=== PATIENT | female | born 1960 | race Two or more races ===

== ENCOUNTER 2020-10-10 08:27 | Day surgery (SDC) | payer OTHER, SELFPAY ==
[2020-09-30 15:33] VITALS: BMI 35.3
--- NOTE | 2020-10-10 07:03 | MHC.SHP ---
Pre-Procedural Eval Section A Date of Service: 10/10/20 Section B Chief Complaint: Right Eye Cataract Allergies: Allergies Allergy/AdvReac Type Severity Reaction Status Date / Time codeine Allergy tachycardia Verified 09/30/20 15:19 cortisone Allergy tachycardia Verified 09/30/20 15:19 hydromorphone Allergy swelling, Verified 09/30/20 15:19 Short of Breath morphine Allergy Hallucinati Verified 09/30/20 15:19 ons Penicillins Allergy Swelling Verified 09/30/20 15:19 Sulfa (Sulfonamide Allergy Swelling Verified 09/30/20 15:19 Antibiotics) Plan I have reviewed the history and physical and performed a pertinent physical examination on my patient. No changes have occurred unless specified.
[2020-10-10 11:01] VITALS: BP 146/57; PULSE 55; RESP 18; TEMP 36.3; O2SAT 98
[2020-10-10 11:02] LABS: Glucose, Whole Blood 350 mg/dL (60-115)
[2020-10-10] MEDS: Lactated Ringers 500 ML 50 ML IVCONT (11:20)
[2020-10-10] MEDS: Tetracaine HCl/PF 0.5% Oph Sol 4 ML DROPS 1 DROP EYE-RIGHT (11:21)
[2020-10-10] MEDS: Tropicamide 1 % Ophth Sol 3 ML BTL 1 DROP EYE-RIGHT ×3 (11:23→11:31)
[2020-10-10] MEDS: Phenylephrine HCL 2.5% Oph SoL 2 ML BOTTLE 1 DROP EYE-RIGHT ×3 (11:25→11:33)
[2020-10-10] MEDS: Insulin Lispro 100 UNIT/ML 3 ML VIAL 6 UNIT SUBCUT (11:38)
--- NOTE | 2020-10-10 11:54 | HO.ANESPROP2 ---
HPI - Anesthesia Eval Consult details Narrative: Right eye cataract [facility] Past Medical History Medical History CAD (coronary artery disease) Chronic low back pain Cirrhosis CKD (chronic kidney disease) stage 3, GFR 30-59 ml/min Elevated cholesterol HTN (hypertension) Mediastinal adenopathy Obesity Peripheral neuropathy Sarcoidosis of lung STEMI (ST elevation myocardial infarction) Type II diabetes mellitus Surgical History Surgical History History of heart artery stent History of tubal ligation Hx laparoscopic cholecystectomy Hx of colonoscopy Hx of endoscopy Social History Social History Are you a primary care clinician to a significant other at home: No Do you presently have visiting nurse or other home services: No Patient Tobacco Use Status: Never used Tobacco Use of substances other than those prescribed or required for medical reasons: No Have you been hit, kicked, punched, or otherwise hurt by someone within the past year? If so, by whom?: No Are you DNR?: No Advance Directives: No Advance Directives Information Provided: No Advance Directives on File: No Recently lost weight without trying: No Eating poorly because of decreased appetite: No Nutrition Risks: No Nutritional Risk Meds Allergies Allergy/AdvReac Type Severity Reaction Status Date / Time codeine Allergy tachycardia Verified 10/10/20 10:51 cortisone Allergy tachycardia Verified 10/10/20 10:51 hydromorphone Allergy swelling, Verified 10/10/20 10:51 Short of Breath morphine Allergy Hallucinati Verified 10/10/20 10:51 ons Penicillins Allergy Swelling Verified 10/10/20 10:51 Sulfa (Sulfonamide Allergy Swelling Verified 10/10/20 10:51 Antibiotics) Active Medications: Current Medications Generic Name Dose Route Start Last Admin Trade Name Freq PRN Reason Stop Dose Admin Lactated Ringer's 1,000 mls @ 50 mls/hr 10/07/20 12:15 Lr IVCONT .Q20H JOHANNA Lactated Ringer's 500 mls @ 50 mls/hr 10/10/20 07:45 10/10/20 11:20 Lr IVCONT 50 mls/hr .Q10H JOHANNA Administration Povidone Iodine 1 appl 10/10/20 07:03 Povidone Iodine 5 % Ophth Soln 30 Ml Bottle EYE-RIGHT PREOP PRN Pre-Op Surgical Implant Prophy Home Medications Medication Instructions Recorded Confirmed Last Taken Type acetaminophen 500 mg tablet 2 tab PO Q6H PRN 09/30/20 09/30/20 Unknown History amlodipine 5 mg tablet 1 tab PO DAILY 09/30/20 09/30/20 Unknown History ascorbic acid (vitamin C) 500 mg 500 mg PO DAILY 09/30/20 09/30/20 Unknown History tablet (Vitamin C) aspirin 81 mg tablet,delayed 1 tab PO DAILY 09/30/20 09/30/20 10/09/20 09:00 History release atorvastatin 80 mg tablet 1 tab PO BEDTIME 09/30/20 09/30/20 Unknown History carvedilol 25 mg tablet 1 tab PO 09/30/20 Unknown History cholecalciferol (vitamin D3) 25 25 mcg PO DAILY 09/30/20 09/30/20 Unknown History mcg (1,000 unit) capsule (Vitamin D3) diclofenac sodium 1 % topical gel g TOPICAL QID 09/30/20 Unknown History furosemide 20 mg tablet 1 tab PO DAILY 09/30/20 09/30/20 Unknown History insulin glargine 100 unit/mL (3 55 unit SUBCUT BEDTIME 09/30/20 09/30/20 Unknown History mL) subcutaneous pen (Lantus Solostar U-100 Insulin) insulin lispro 100 unit/mL 0 - 45 unit TOPICAL TID 09/30/20 09/30/20 Unknown History subcutaneous pen (Humalog KwikPen (U-100) Insulin) isosorbide mononitrate 30 mg 1 tab PO DAILY 09/30/20 09/30/20 Unknown History tablet,extended release 24 hr lisinopril 5 mg tablet 1 tab PO DAILY 09/30/20 09/30/20 Unknown History omega-3 fatty acids 1,000 mg PO DAILY 09/30/20 09/30/20 Unknown History timolol maleate 0.5 % eye drops 1 drp OPHTHALMIC-RIGHT QAM 09/30/20 09/30/20 Unknown History Exam Exam Date and Time: October 10, 2020 1154 Height,Weight and Vital Signs: Height 5 ft 2 in Weight 87.543 kg Last Vital Signs Temp 97.4 F 10/10/20 11:01 Pulse 55 10/10/20 11:01 Resp 18 10/10/20 11:01 BP 146/57 H 10/10/20 11:01 Pulse Ox 98 10/10/20 11:01 Pertinent Lab Results Pertinent Lab Results: Laboratory Tests 10/10/20 10:54 POC Glucose 350 H* Airway Mallampati Class: III TM Dist: >3cm Neck ROM: Full Loose/Missing/Broken Teeth: No Heart: [id number] Lungs: cta b/l
--- NOTE | 2020-10-10 12:02 | HO.PNOPHT ---
Ophthalmology Procedure Procedure Date of Service: 10/10/20 Ophthalmology Viscoelastic: Healon Duet Dual Pack Pro Ophthalmology Lenses: TECNIS [id number] (24.5) Procedure Notes: PREOPERATIVE DIAGNOSIS: Decreased visual acuity right eye secondary to cataract POSTOPERATIVE DIAGNOSIS: Same PROCEDURE: Right cataract extraction with intraocular lens insertion SURGEON: Teo Linder M.D. ANESTHESIA: Topical/MAC ESTIMATED BLOOD LOSS: None COMPLICATIONS: None After obtaining informed consent, the patient was brought to the operating room suite and placed in the supine position. After adequate sedation per anesthesia, topical drops of Tetracaine were given to the right eye. The eye was then prepped and draped in the usual sterile fashion. The operating room microscope was then positioned over the operative eye and a lid speculum placed. A paracentesis was created. Viscoelastic was then instilled into the anterior chamber. A three plane incision was then created temporally, utilizing a 2.85 mm keratome. Capsulotomy forceps were then utilized to create a circular tear capsulotomy. Hydrodissection and hydrodelineation were carried out until adequate mobilization of the nucleus occurred. Phacoemulsification was then utilized to remove the dense central nucleus followed by removal of the cortical material utilizing the automated aspiration irrigation unit. Viscoelastic was instilled into the posterior capsular bag followed by placement of a posterior chamber intraocular lens without difficulty. The residual Viscoelastic was then removed utilizing the automated IA machine. The wound was checked and found to be watertight. The patient tolerated the procedure well and the lid speculum was removed. Intracameral injection of Vigamox 0.1 mL followed by a subtenon injection of Kenalog-40 0.2 mL were administered. The patient will be seen in the a.m.
[2020-10-10 12:44] VITALS: BP 163/62; PULSE 56; RESP 16; TEMP 36.3; O2SAT 96
[2020-10-10 12:54] LABS: Glucose, Whole Blood 318 mg/dL (60-115)
--- NOTE | 2020-10-10 12:59 | PC.NURSE ---
Addendum entered by Daisy Skaggs RN 10/10/20 13:19: Written materials on diabetic diet provided for patient in [place]. Information reinforced with pt's family prior discharge home. Original Note: Dr. Riddle notified with post op POC BS 318, fasting. Preop POC 350. Pt seen by anesthesia prior discharge home, no further orders at this time. Pt instructed to follow up with her PCP re: elevated fasting blood sugars, and encouraged her to adhere to ADA diet, avoid junk foods, sugars and high carbs foods. Pt verbalized understanding, reports she monitors her blood sugars regularly at home as she is on Insulin and will f/u with her PCP.
== END 2020-10-10 13:20 | disposition home or self-care (01) ==
PROVIDERS: PCP Family Medicine; Visit Provider Ophthalmology
PROC: (CPT 66985; principal; 2020-10-10 11:20)
DX: H25.11 Age-related nuclear cataract, right eye (principal); Z83.511 Family history of glaucoma; H54.7 Unspecified visual loss; I10 Essential (primary) hypertension; D86.9 Sarcoidosis, unspecified; I12.9 Hypertensive chronic kidney disease with stage 1 through stage 4 chronic kidney disease, or unspecified chronic kidney disease; E11.22 Type 2 diabetes mellitus with diabetic chronic kidney disease; E11.3553 Type 2 diabetes mellitus with stable proliferative diabetic retinopathy, bilateral; N18.30 Chronic kidney disease, stage 3 unspecified; Z88.0 Allergy status to penicillin; Z88.2 Allergy status to sulfonamides; Z88.8 Allergy status to other drugs, medicaments and biological substances; Z79.4 Long term (current) use of insulin; Z79.899 Other long term (current) drug therapy
CPT/HCPCS: 66984; 82947; J2250; J3300; V2632

== ENCOUNTER 2020-10-24 08:38 | Day surgery (SDC) | payer OTHER, SELFPAY ==
[2020-09-30 15:38] VITALS: BMI 35.3
--- NOTE | 2020-10-17 14:42 | MHC.SHP ---
Pre-Procedural Eval Section A Date of Service: 10/17/20 The patient is an INPATIENT: No The History & Physical has been completed within 30 days and I have reviewed it.: Yes Section B Chief Complaint: Left Eye Cataract Allergies: Allergies Allergy/AdvReac Type Severity Reaction Status Date / Time codeine Allergy tachycardia Verified 10/10/20 10:51 cortisone Allergy tachycardia Verified 10/10/20 10:51 hydromorphone Allergy swelling, Verified 10/10/20 10:51 Short of Breath morphine Allergy Hallucinati Verified 10/10/20 10:51 ons Penicillins Allergy Swelling Verified 10/10/20 10:51 Sulfa (Sulfonamide Allergy Swelling Verified 10/10/20 10:51 Antibiotics) Plan Diagnosis/Plan: Unchanged I have reviewed the history and physical and performed a pertinent physical examination on my patient. No changes have occurred unless specified.
--- NOTE | 2020-10-20 14:30 | HO.ANESPROP2 ---
Documented by User: Cynthia Cabrera NP 10/20/20 14:32 HPI - Anesthesia Eval Consult details Narrative: 60yo F for Left Cataract Extraction IOL Insertion PCP cleared Right eye 10/10: [facility] 2 PMF[facility] Past Medical History Medical History CAD (coronary artery disease) Chronic low back pain Cirrhosis CKD (chronic kidney disease) stage 3, GFR 30-59 ml/min Elevated cholesterol HTN (hypertension) Mediastinal adenopathy Obesity Peripheral neuropathy Sarcoidosis of lung STEMI (ST elevation myocardial infarction) Type II diabetes mellitus Surgical History Surgical History History of heart artery stent History of tubal ligation Hx laparoscopic cholecystectomy Hx of colonoscopy Hx of endoscopy Social History Social History Are you a primary healthcare applications analyst to a significant other at home: No Do you presently have visiting nurse or other home services: No Patient Tobacco Use Status: Never used Tobacco Use of substances other than those prescribed or required for medical reasons: No Have you been hit, kicked, punched, or otherwise hurt by someone within the past year? If so, by whom?: No Are you DNR?: No Advance Directives: No Advance Directives Information Provided: No Advance Directives on File: No Recently lost weight without trying: No Eating poorly because of decreased appetite: No Nutrition Risks: No Nutritional Risk Patient : No Meds Allergies Allergy/AdvReac Type Severity Reaction Status Date / Time codeine Allergy tachycardia Verified 10/10/20 10:51 cortisone Allergy tachycardia Verified 10/10/20 10:51 hydromorphone Allergy swelling, Verified 10/10/20 10:51 Short of Breath morphine Allergy Hallucinati Verified 10/10/20 10:51 ons Penicillins Allergy Swelling Verified 10/10/20 10:51 Sulfa (Sulfonamide Allergy Swelling Verified 10/10/20 10:51 Antibiotics) Home Medications Medication Instructions Recorded Confirmed Last Taken Type acetaminophen 500 mg tablet 2 tab PO Q6H PRN 09/30/20 09/30/20 Unknown History amlodipine 5 mg tablet 1 tab PO DAILY 09/30/20 09/30/20 10/24/20 History ascorbic acid (vitamin C) 500 mg 500 mg PO DAILY 09/30/20 09/30/20 Unknown History tablet (Vitamin C) aspirin 81 mg tablet,delayed 1 tab PO DAILY 09/30/20 09/30/20 10/09/20 09:00 History release atorvastatin 80 mg tablet 1 tab PO BEDTIME 09/30/20 09/30/20 Unknown History carvedilol 25 mg tablet 1 tab PO 09/30/20 10/24/20 History cholecalciferol (vitamin D3) 25 25 mcg PO DAILY 09/30/20 09/30/20 Unknown History mcg (1,000 unit) capsule (Vitamin D3) diclofenac sodium 1 % topical gel g TOPICAL QID 09/30/20 Unknown History furosemide 20 mg tablet 1 tab PO DAILY 09/30/20 09/30/20 Unknown History insulin glargine 100 unit/mL (3 55 unit SUBCUT BEDTIME 09/30/20 09/30/20 Unknown History mL) subcutaneous pen (Lantus Solostar U-100 Insulin) insulin lispro 100 unit/mL 0 - 45 unit TOPICAL TID 09/30/20 09/30/20 Unknown History subcutaneous pen (Humalog KwikPen (U-100) Insulin) isosorbide mononitrate 30 mg 1 tab PO DAILY 09/30/20 09/30/20 10/24/20 History tablet,extended release 24 hr lisinopril 5 mg tablet 1 tab PO DAILY 09/30/20 09/30/20 Unknown History omega-3 fatty acids 1,000 mg PO DAILY 09/30/20 09/30/20 Unknown History timolol maleate 0.5 % eye drops 1 drp OPHTHALMIC-RIGHT QAM 09/30/20 09/30/20 Unknown History Exam Exam Date and Time: October 20, 2020 1430 Height,Weight and Vital Signs: Height 5 ft 2 in Weight 87.543 kg Assessment and Plan Assessment Anesthesia Assessment: Chart Reviewed Documented by User: Meagan Russell MD 10/24/20 10:09 [facility] Past Medical History Medical History CAD (coronary artery disease) Chronic low back pain Cirrhosis CKD (chronic kidney disease) stage 3, GFR 30-59 ml/min Elevated cholesterol HTN (hypertension) Mediastinal adenopathy Obesity Peripheral neuropathy Sarcoidosis of lung STEMI (ST elevation myocardial infarction) Type II diabetes mellitus Surgical History Surgical History History of heart artery stent History of tubal ligation Hx laparoscopic cholecystectomy Hx of colonoscopy Hx of endoscopy History of Problems with Anesthesia: No Social History Social History Are you a primary healthcare applications analyst to a significant other at home: No Do you presently have visiting nurse or other home services: No Patient Tobacco Use Status: Never used Tobacco Use of substances other than those prescribed or required for medical reasons: No Have you been hit, kicked, punched, or otherwise hurt by someone within the past year? If so, by whom?: No Are you DNR?: No Advance Directives: No Advance Directives Information Provided: No Advance Directives on File: No Recently lost weight without trying: No Eating poorly because of decreased appetite: No Nutrition Risks: No Nutritional Risk Patient : No Meds Allergies Allergy/AdvReac Type Severity Reaction Status Date / Time codeine Allergy tachycardia Verified 10/10/20 10:51 cortisone Allergy tachycardia Verified 10/10/20 10:51 hydromorphone Allergy swelling, Verified 10/10/20 10:51 Short of Breath morphine Allergy Hallucinati Verified 10/10/20 10:51 ons Penicillins Allergy Swelling Verified 10/10/20 10:51 Sulfa (Sulfonamide Allergy Swelling Verified 10/10/20 10:51 Antibiotics) Home Medications Medication Instructions Recorded Confirmed Last Taken Type acetaminophen 500 mg tablet 2 tab PO Q6H PRN 09/30/20 09/30/20 Unknown History amlodipine 5 mg tablet 1 tab PO DAILY 09/30/20 09/30/20 10/24/20 History ascorbic acid (vitamin C) 500 mg 500 mg PO DAILY 09/30/20 09/30/20 Unknown History tablet (Vitamin C) aspirin 81 mg tablet,delayed 1 tab PO DAILY 09/30/20 09/30/20 10/09/20 09:00 History release atorvastatin 80 mg tablet 1 tab PO BEDTIME 09/30/20 09/30/20 Unknown History carvedilol 25 mg tablet 1 tab PO 09/30/20 10/24/20 History cholecalciferol (vitamin D3) 25 25 mcg PO DAILY 09/30/20 09/30/20 Unknown History mcg (1,000 unit) capsule (Vitamin D3) diclofenac sodium 1 % topical gel g TOPICAL QID 09/30/20 Unknown History furosemide 20 mg tablet 1 tab PO DAILY 09/30/20 09/30/20 Unknown History insulin glargine 100 unit/mL (3 55 unit SUBCUT BEDTIME 09/30/20 09/30/20 Unknown History mL) subcutaneous pen (Lantus Solostar U-100 Insulin) insulin lispro 100 unit/mL 0 - 45 unit TOPICAL TID 09/30/20 09/30/20 Unknown History subcutaneous pen (Humalog KwikPen (U-100) Insulin) isosorbide mononitrate 30 mg 1 tab PO DAILY 09/30/20 09/30/20 10/24/20 History tablet,extended release 24 hr lisinopril 5 mg tablet 1 tab PO DAILY 09/30/20 09/30/20 Unknown History omega-3 fatty acids 1,000 mg PO DAILY 09/30/20 09/30/20 Unknown History timolol maleate 0.5 % eye drops 1 drp OPHTHALMIC-RIGHT QAM 09/30/20 09/30/20 Unknown History Exam Airway Mallampati Class: II Heart: RRR Lungs: CTA Assessment and Plan Assessment Anesthesia Assessment: Anesthesia Plan Discussed Final Anesthetic Review History of Problems with Anesthesia: No NPO: Yes ASA Class: III Final Preanesthetic Review: Meds/Allgs Chart Reviewed, Consent Obtained/Reviewed and Anes Risks/Benef Reviewed Patient Risk: Intermediate Procedure Risk: Low Anesthetic Plan Anesthetic Plan: MAC: Disposition: Standard PACU
[2020-10-24 09:34] VITALS: BP 154/49; PULSE 64; RESP 16; TEMP 35.6; O2SAT 97
[2020-10-24] MEDS: Tetracaine HCl/PF 0.5% Oph Sol 4 ML DROPS 1 DROP EYE-LEFT (09:45)
[2020-10-24] MEDS: Lactated Ringers 500 ML 50 ML IV (09:46)
[2020-10-24] MEDS: Tropicamide 1 % Ophth Sol 3 ML BTL 1 DROP EYE-LEFT ×3 (09:47→09:59)
[2020-10-24] MEDS: Phenylephrine HCL 2.5% Oph SoL 2 ML BOTTLE 1 DROP EYE-LEFT ×3 (09:50→10:04)
[2020-10-24 09:51] LABS: Glucose, Whole Blood 262 mg/dL (60-115)
--- NOTE | 2020-10-24 10:37 | P.PCNO_ITS ---
Ophthalmology Procedure Procedure Date of Service: 10/24/20 Ophthalmology Viscoelastic: Healon Duet Dual Pack Pro Ophthalmology Lenses: TECNIS [id number] Procedure Notes: PREOPERATIVE DIAGNOSIS: Decreased visual acuity left eye secbrody my to cataract POSTOPERATIVE DIAGNOSIS: Same PROCEDURE: Left cataract extraction with intraocular lens insertion SURGEON: Teo Linder M.D. ANESTHESIA: Topical/MAC ESTIMATED BLOOD LOSS: None COMPLICATIONS: None After obtaining informed consent, the patient was brought to the operation room suite and placed in the supine position. After adequate sedation per anesthesia, topical drops of Tetracaine were given to the left eye. The eye was then prepped and draped in the usual sterile fashion. The operating room microscope was then positioned over the operative eye and a lid speculum placed. A paracentesis was created. Viscoelastic was then instilled into the anterior chamber. A three plane incision was then created temporally, utilizing a 2.85 mm keratome. Capsulotomy forceps were then utilized to create a circular tear capsulotomy. Hydrodissection and hydrodelineation were carried out until adequate mobilization of the nucleus occurred. Phacoemulsification was then utilized to remove the dense central nucleus followed by removal of the cortical material utilizing the automated aspiration irrigation unit. Viscoat elastic was instilled into the posterior capsular bag followed by placement of a posterior chamber intraocular lens without difficulty. The residual Viscoat elastic was then removed utilizing the automated IA machine. The wound was check and found to be watertight. The patient tolerated the procedure well and the lid speculum was removed. Intracameral injection of Vigamox 0.1 mL followed by a subtenon injection of Kenalog-40 0.2 mL were administered. The patient will be seen in the a.m.
[2020-10-24 11:02] VITALS: BP 154/62; PULSE 56; RESP 16; TEMP 36.3; O2SAT 99
[2020-10-24] MEDS: Ondansetron ODT 4 MG TAB.RAPDIS TRANSLINGU (11:20)
--- NOTE | 2020-10-24 11:22 | PC.NURSE ---
Pt became nauseous upon discharge, pt seen by Dr. Riddle. PO Zofran given with good relief.
== END 2020-10-24 11:26 | disposition home or self-care (01) ==
PROVIDERS: PCP Family Medicine; Visit Provider Ophthalmology
PROC: (CPT 66985; principal; 2020-10-24 10:30)
DX: H25.12 Age-related nuclear cataract, left eye (principal); H54.7 Unspecified visual loss; Z83.511 Family history of glaucoma; I10 Essential (primary) hypertension; E11.3553 Type 2 diabetes mellitus with stable proliferative diabetic retinopathy, bilateral; Z79.4 Long term (current) use of insulin; Z79.82 Long term (current) use of aspirin; Z79.899 Other long term (current) drug therapy; Z88.0 Allergy status to penicillin; Z88.2 Allergy status to sulfonamides; Z88.8 Allergy status to other drugs, medicaments and biological substances
CPT/HCPCS: 66984; 82947; J2250; J3010; J3300; V2632

== ENCOUNTER 2023-09-17 15:49 | Outpatient (AMB) | payer MEDICARE, MEDICAID, SELFPAY ==
--- NOTE | 2023-09-17 14:35 | HO.NEPHOV ---
Intake Visit Reasons: Prev Patient/ LVM Allergies codeine Allergy (Verified 10/10/20 10:51) tachycardia cortisone Allergy (Verified 10/10/20 10:51) tachycardia hydromorphone Allergy (Verified 10/10/20 10:51) swelling, Short of Breath morphine Allergy (Verified 10/10/20 10:51) Hallucinations Penicillins Allergy (Verified 10/10/20 10:51) Swelling Sulfa (Sulfonamide Antibiotics) Allergy (Verified 10/10/20 10:51) Swelling PFSH Medical History CAD (coronary artery disease) Chronic low back pain Cirrhosis CKD (chronic kidney disease) stage 3, GFR 30-59 ml/min Elevated cholesterol HTN (hypertension) Mediastinal adenopathy Obesity Peripheral neuropathy Sarcoidosis of lung STEMI (ST elevation myocardial infarction) Type II diabetes mellitus Surgical History History of heart artery stent History of tubal ligation Hx laparoscopic cholecystectomy Hx of colonoscopy Hx of endoscopy Social History Are you a primary healthcare network consultant to a significant other at home: No Do you presently have visiting nurse or other home services: No Patient Tobacco Use Status: Never used Tobacco Results Reviewed Nephrology Results: No Data to Display Coding
[2023-09-17 16:24] VITALS: BP 132/52; PULSE 73; O2SAT 95; BMI 33.0
--- NOTE | 2023-09-17 16:24 | HO.NEPHOV ---
Vital Signs 09/17/23 16:24 Height 5 ft 2 in Weight 180 lb 8 oz BMI 33.0 BP 132/52 L Blood Pressure Location Lt brachial Position Sitting Pulse 73 Pulse Source Pulse Oximeter Pulse Oximetry (%) 95 Oxygen Delivery Method Room Air Intake Visit Reasons: Prev Patient/ LVM Home Care Manager Rn Required: Yes Home Care Manager Rn Services: Home Care Manager Rn Present Home Care Manager Rn Name: Francisca [id number] Accompanied by: Daughter Allergies codeine Allergy (Verified 10/10/20 10:51) tachycardia cortisone Allergy (Verified 10/10/20 10:51) tachycardia hydromorphone Allergy (Verified 10/10/20 10:51) swelling, Short of Breath latex Allergy (Verified 09/17/23 16:26) Unknown morphine Allergy (Verified 10/10/20 10:51) Hallucinations Penicillins Allergy (Verified 10/10/20 10:51) Swelling Sulfa (Sulfonamide Antibiotics) Allergy (Verified 10/10/20 10:51) Swelling HPI Comments Details: I had the pleasure of seeing Francisca in follow-up of her recent BHAVNA. She has history of chronic kidney disease, nephrolithiasis, proteinuria on a backdrop of sarcoidosis. She recently presented to hospital with shortness of breath and was admitted for acute hypoxic respiratory failure. She had pulmonary vascular congestion seen on chest x-ray in the ER with elevated pro BNP and was admitted for further management. She underwent CT scan of the chest which was unchanged from prior in terms of pulmonary sarcoid. Pulmonology did not recommend systemic steroids or methotrexate. Her hospital stay was complicated by development of BHAVNA which improved after discontinuation of intravenous Lasix. She was accompanied by her daughter during this office visit. She likely has pulmonary artery hypertension in the setting of pulmonary sarcoid and heart failure with a preserved ejection fraction. She may be having an element of cardiac sarcoid which is going to be worked up as an outpatient. She is currently on torsemide. Her baseline serum creatinine had been 1.8 which had gone up to 2.84 but was 2.2 at the time of recent hospital discharge. Her blood sugar is better controlled on current insulin dosages. Her home losartan has been on hold due to BHAVNA. She did not have any new complaints at the time of this office visit. [facility] Medical History (Updated 09/18/23 @ 11:37 by Yonathan Tesfaye MD) Obesity STEMI (ST elevation myocardial infarction) Peripheral neuropathy Mediastinal adenopathy Cirrhosis Chronic low back pain Type II diabetes mellitus Elevated cholesterol HTN (hypertension) CKD (chronic kidney disease) stage 3, GFR 30-59 ml/min CAD (coronary artery disease) Sarcoidosis of lung Surgical History History of tubal ligation Hx of endoscopy Hx laparoscopic cholecystectomy Hx of colonoscopy History of heart artery stent Social History Are you a primary inspector health care facilities to a significant other at home: No Do you presently have visiting nurse or other home services: No Patient Tobacco Use Status: Never used Tobacco Review of Systems Const All systems reviewed & are unremarkable except as noted in HPI and below Physical Exam Vital Signs: Last Vital Signs Pulse 73 09/17/23 16:24 BP 132/52 L 09/17/23 16:24 Pulse Ox 95 09/17/23 16:24 Oxygen Delivery Method Room Air 09/17/23 16:24 BMI result Body Mass Index 33.0 Const General: comfortable and no acute distress Orientation/consciousness: patient oriented x3 HEENT Head: Yes normocephalic Mouth: Normal oral and palatal mucosa present Eyes EOM: EOMs intact bilaterally Neck Neck: Yes supple Resp Auscultation: diminished lung sounds Cardio Jugular venous distension: no JVD Rate: regular rate GI Palpation (GI): Soft to palpation Auscultation: normal bowel sounds General: Yes no CVA tenderness Back/Spine/Pelvis Back: no CVA tenderness Skin General skin exam: no rashes or lesions noted Neuro General: patient oriented x3 and moves all extremities Extrem General: Yes no pedal edema Results Reviewed Nephrology Results: No Data to Display Assessment & Plan Assessment & Plan (1) HTN (hypertension): Code(s): I10 - Essential (primary) hypertension Category: Medical Qualifiers: Hypertension type: primary hypertension Qualified Code(s): I10 - Essential (primary) hypertension (2) CKD stage 3a, GFR 45-59 ml/min: Code(s): N18.31 - Chronic kidney disease, stage 3a Category: Medical (3) BHAVNA (acute kidney injury): Code(s): N17.9 - Acute kidney failure, unspecified Category: Medical Plan She recently had BHAVNA on CKD due to tubular injury. She has history of renal calculi but has not had a problem with it recently. Her blood pressure is currently at goal. She is not on any immunosuppression for sarcoid. She has been on losartan which has been put on hold due to recent BHAVNA. Her diuretic torsemide has been restarted. Her urine output is good. Has no recent suspect any new acute glomerular or interstitial pathology causing BHAVNA. Her volume status is optimal on current medication regimen. She should be on a low-sodium diet. She will benefit by losing some weight. She should maintain fluid restriction. I did not make any medication changes today. Time spent retrieving all the data from [facility], patient encounter and documentation 61 minutes. Answered all her and her daughter's questions. Follow-up appointment given. Orders: Orders Creatinine 3 Weeks I10 - Essential (primary) hypertension, N17.9 - Acute kidney failure, unspecified, N18.31 - Chronic kidney disease, stage 3a Electrolytes 3 Weeks I10 - Essential (primary) hypertension, N17.9 - Acute kidney failure, unspecified, N18.31 - Chronic kidney disease, stage 3a Calcium 3 Weeks I10 - Essential (primary) hypertension, N17.9 - Acute kidney failure, unspecified, N18.31 - Chronic kidney disease, stage 3a Vitamin D 25-OH Total 3 Weeks I10 - Essential (primary) hypertension, N17.9 - Acute kidney failure, unspecified, N18.31 - Chronic kidney disease, stage 3a Phosphorus 3 Weeks I10 - Essential (primary) hypertension, N17.9 - Acute kidney failure, unspecified, N18.31 - Chronic kidney disease, stage 3a Blood Urea Nitrogen 3 Weeks I10 - Essential (primary) hypertension, N17.9 - Acute kidney failure, unspecified, N18.31 - Chronic kidney disease, stage 3a Parathyroid Hormone Intact 3 Weeks I10 - Essential (primary) hypertension, N17.9 - Acute kidney failure, unspecified, N18.31 - Chronic kidney disease, stage 3a Complete Blood Count Auto Diff 3 Weeks I10 - Essential (primary) hypertension, N17.9 - Acute kidney failure, unspecified, N18.31 - Chronic kidney disease, stage 3a Coding Level of Care Code Est Pt Level 5 (35392) Diagnoses Primary hypertension I10 Hypertension type: primary hypertension CKD stage 3a, GFR 45-59 ml/min N18.31 BHAVNA (acute kidney injury) N17.9
== END 2023-09-17 16:40 | disposition home or self-care (01) ==
LOC: HO.HKAS 15:49
PROVIDERS: PCP Family Medicine; Visit Provider Internal Medicine Nephrology
DX: I10 Essential (primary) hypertension (principal); N18.31 Chronic kidney disease, stage 3a; N17.9 Acute kidney failure, unspecified
CPT/HCPCS: 99215; G2212

== ENCOUNTER → 2023-09-17 15:49 | Outpatient (BNVA) | payer MEDICARE, MEDICAID, SELFPAY | PROVIDERS: PCP Family Medicine; Visit Provider Internal Medicine Nephrology | DX: N17.9 Acute kidney failure, unspecified (principal); I12.9 Hypertensive chronic kidney disease with stage 1 through stage 4 chronic kidney disease, or unspecified chronic kidney disease; N18.31 Chronic kidney disease, stage 3a; Z87.442 Personal history of urinary calculi | CPT/HCPCS: 99212 ==

== ENCOUNTER 2023-11-05 10:59 | Outpatient (AMB) | payer MEDICARE, MEDICAID, SELFPAY ==
[2023-11-05 11:09] VITALS: BP 124/60; PULSE 66; O2SAT 98; BMI 33.5
--- NOTE | 2023-11-05 11:09 | HO.NEPHOV ---
Vital Signs 11/05/23 11:09 Height 5 ft 2 in Weight 183 lb BMI 33.5 BP 124/60 Blood Pressure Location Lt brachial Position Sitting Pulse 66 Pulse Source Pulse Oximeter Pulse Oximetry (%) 98 Oxygen Delivery Method Room Air Intake Visit Reasons: BHAVNA- Conf Computer Publisher Required: Yes Computer Publisher Services: Computer Publisher Present Computer Publisher Name: Elie [id number] Accompanied by: Self / Same As Patient Allergies codeine Allergy (Verified 11/05/23 11:11) tachycardia cortisone Allergy (Verified 11/05/23 11:11) tachycardia hydromorphone Allergy (Verified 11/05/23 11:11) swelling, Short of Breath latex Allergy (Verified 11/05/23 11:11) Unknown morphine Allergy (Verified 11/05/23 11:11) Hallucinations Penicillins Allergy (Verified 11/05/23 11:11) Swelling Sulfa (Sulfonamide Antibiotics) Allergy (Verified 11/05/23 11:11) Swelling HPI Comments Details: I had the pleasure of seeing Francisca in follow-up of her recent BHAVNA. She has history of chronic kidney disease, nephrolithiasis, proteinuria on a backdrop of sarcoidosis. She recently had shortness of breath and was admitted for acute hypoxic respiratory failure. She had pulmonary vascular congestion seen on chest x-ray in the ER with elevated pro BNP and was admitted for further management. She underwent CT scan of the chest which was unchanged from prior in terms of pulmonary sarcoid. Pulmonology did not recommend systemic steroids or methotrexate. She likely has pulmonary artery hypertension in the setting of pulmonary sarcoid and heart failure with a preserved ejection fraction. She may be having an element of cardiac sarcoid which is going to be worked up as an outpatient. She is currently on torsemide. Her baseline serum creatinine had been 1.8 which had gone up to 2.84 which is improving. Her blood sugar is better controlled on current insulin dosages. She recently had UTI which was treated with antibiotics. She did not have any new complaints at the time of this office visit. [facility] Medical History (Updated 09/18/23 @ 11:37 by Yonathan Tesfaye MD) Obesity STEMI (ST elevation myocardial infarction) Peripheral neuropathy Mediastinal adenopathy Cirrhosis Chronic low back pain Type II diabetes mellitus Elevated cholesterol HTN (hypertension) CKD (chronic kidney disease) stage 3, GFR 30-59 ml/min CAD (coronary artery disease) Sarcoidosis of lung Surgical History History of tubal ligation Hx of endoscopy Hx laparoscopic cholecystectomy Hx of colonoscopy History of heart artery stent Social History Are you a primary career and technology education teacher to a significant other at home: No Do you presently have visiting nurse or other home services: No Patient Tobacco Use Status: Never used Tobacco Review of Systems Const All systems reviewed & are unremarkable except as noted in HPI and below Physical Exam Vital Signs: Last Vital Signs Pulse 66 11/05/23 11:09 BP 124/60 11/05/23 11:09 Pulse Ox 98 11/05/23 11:09 Oxygen Delivery Method Room Air 11/05/23 11:09 BMI result Body Mass Index 33.5 Const General: comfortable and no acute distress Orientation/consciousness: patient oriented x3 HEENT Head: Yes normocephalic Mouth: Normal oral and palatal mucosa present Eyes EOM: EOMs intact bilaterally Neck Neck: Yes supple Resp Auscultation: clear to auscultation bilaterally Cardio Jugular venous distension: no JVD Rate: regular rate GI Palpation (GI): Soft to palpation Auscultation: normal bowel sounds General: Yes no CVA tenderness Back/Spine/Pelvis Back: no CVA tenderness Skin General skin exam: no rashes or lesions noted Neuro General: patient oriented x3 and moves all extremities Extrem General: Yes no pedal edema Results Reviewed Nephrology Results: No Data to Display Assessment & Plan Assessment & Plan (1) BHAVNA (acute kidney injury): Code(s): N17.9 - Acute kidney failure, unspecified Category: Medical (2) CKD stage 3a, GFR 45-59 ml/min: Code(s): N18.31 - Chronic kidney disease, stage 3a Category: Medical (3) HTN (hypertension): Code(s): I10 - Essential (primary) hypertension Category: Medical Qualifiers: Hypertension type: primary hypertension Qualified Code(s): I10 - Essential (primary) hypertension Plan She recently had BHAVNA on CKD due to tubular injury which is improving . She has history of renal calculi but has not had a problem with it recently. Her blood pressure is currently at goal. She is not on any immunosuppression for sarcoid. She has been on losartan which has been put on hold due to recent BHAVNA. She can continue current dose of torsemide. Her urine output is good. Has no recent suspect any new acute glomerular or interstitial pathology causing BHAVNA. Her volume status is optimal on current medication regimen. She should be on a low-sodium diet. She will benefit by losing some weight. She should maintain fluid restriction. I did not make any medication changes today. Answered all her questions. Follow-up appointment given. Orders: Orders Creatinine Today I10 - Essential (primary) hypertension, N17.9 - Acute kidney failure, unspecified, N18.31 - Chronic kidney disease, stage 3a Blood Urea Nitrogen Today I10 - Essential (primary) hypertension, N17.9 - Acute kidney failure, unspecified, N18.31 - Chronic kidney disease, stage 3a Electrolytes Today I10 - Essential (primary) hypertension, N17.9 - Acute kidney failure, unspecified, N18.31 - Chronic kidney disease, stage 3a Coding Level of Care Code Est Pt Level 4 (74849) Diagnoses BHAVNA (acute kidney injury) N17.9 CKD stage 3a, GFR 45-59 ml/min N18.31 Primary hypertension I10 Hypertension type: primary hypertension
== END 2023-11-05 11:31 | disposition home or self-care (01) ==
PROVIDERS: PCP Family Medicine; Visit Provider Internal Medicine Nephrology
DX: N17.9 Acute kidney failure, unspecified (principal); N18.31 Chronic kidney disease, stage 3a; I10 Essential (primary) hypertension
CPT/HCPCS: 99214

== ENCOUNTER → 2023-11-05 10:59 | Outpatient (BNVA) | payer MEDICARE, MEDICAID, SELFPAY | PROVIDERS: PCP Family Medicine; Visit Provider Internal Medicine Nephrology | DX: N17.9 Acute kidney failure, unspecified (principal); E11.22 Type 2 diabetes mellitus with diabetic chronic kidney disease; I12.9 Hypertensive chronic kidney disease with stage 1 through stage 4 chronic kidney disease, or unspecified chronic kidney disease; N18.31 Chronic kidney disease, stage 3a | CPT/HCPCS: 99212 ==

== ENCOUNTER 2024-01-07 10:59 | Outpatient (AMB) | payer MEDICARE, MEDICAID, SELFPAY ==
--- NOTE | 2024-01-07 11:38 | HO.NEPHOV_ITS ---
Vital Signs 01/07/24 11:39 Height 5 ft 2 in Weight 176 lb 8 oz BMI 32.3 BP 150/64 H Blood Pressure Location Lt brachial Position Sitting Pulse 66 Pulse Source Pulse Oximeter Pulse Oximetry (%) 95 Oxygen Delivery Method Room Air Intake Visit Reasons: 2 mon follow up-Conf Nutrition Counselor Required: Yes Nutrition Counselor Language: Deputy Sheriff Chief Services: Nutrition Counselor Present Nutrition Counselor Name: Abner [id number] Accompanied by: Self / Same As Patient Allergies codeine Allergy (Verified 01/07/24 11:38) tachycardia cortisone Allergy (Verified 01/07/24 11:38) tachycardia hydromorphone Allergy (Verified 01/07/24 11:38) swelling, Short of Breath latex Allergy (Verified 01/07/24 11:38) Unknown morphine Allergy (Verified 01/07/24 11:38) Hallucinations Penicillins Allergy (Verified 01/07/24 11:38) Swelling Sulfa (Sulfonamide Antibiotics) Allergy (Verified 01/07/24 11:38) Swelling HPI Comments Details: I had the pleasure of seeing Francisca in follow-up for chronic kidney disease, nephrolithiasis, proteinuria on a backdrop of sarcoidosis. She underwent CT scan of the chest which was unchanged from prior in terms of pulmonary sarcoid. Pulmonology did not recommend systemic steroids or methotrexate. She likely has pulmonary artery hypertension in the setting of pulmonary sarcoid and heart failure with a preserved ejection fraction. She is currently on torsemide. Her baseline serum creatinine had been 1.8 which had gone up to 2.84 which is improving. Her blood sugar is better controlled on current insulin dosages. She did not have any new complaints at the time of this office visit. [facility] Medical History (Updated 09/18/23 @ 11:37 by Yonathan Tesfaye MD) Obesity STEMI (ST elevation myocardial infarction) Peripheral neuropathy Mediastinal adenopathy Cirrhosis Chronic low back pain Type II diabetes mellitus Elevated cholesterol HTN (hypertension) CKD (chronic kidney disease) stage 3, GFR 30-59 ml/min CAD (coronary artery disease) Sarcoidosis of lung Surgical History History of tubal ligation Hx of endoscopy Hx laparoscopic cholecystectomy Hx of colonoscopy History of heart artery stent Social History Are you a primary patient care associate to a significant other at home: No Do you presently have visiting nurse or other home services: No Patient Tobacco Use Status: Never used Tobacco Physical Exam Vital Signs: Last Vital Signs Pulse 66 01/07/24 11:39 BP 150/64 H 01/07/24 11:39 Pulse Ox 95 01/07/24 11:39 Oxygen Delivery Method Room Air 01/07/24 11:39 BMI result Body Mass Index 32.3 Const General: comfortable and no acute distress Orientation/consciousness: patient oriented x3 HEENT Head: Yes normocephalic Mouth: Normal oral and palatal mucosa present Eyes EOM: EOMs intact bilaterally Neck Neck: Yes supple Resp Auscultation: clear to auscultation bilaterally Cardio Jugular venous distension: no JVD Rate: regular rate GI Palpation (GI): Soft to palpation Auscultation: normal bowel sounds General: Yes no CVA tenderness Back/Spine/Pelvis Back: no CVA tenderness Skin General skin exam: no rashes or lesions noted Neuro General: patient oriented x3 and moves all extremities Results Reviewed Nephrology Results: No Data to Display Assessment & Plan Assessment & Plan (1) CKD stage 3a, GFR 45-59 ml/min: Code(s): N18.31 - Chronic kidney disease, stage 3a Category: Medical (2) HTN (hypertension): Code(s): I10 - Essential (primary) hypertension Category: Medical Qualifiers: Hypertension type: primary hypertension Qualified Code(s): I10 - Essential (primary) hypertension Plan She recently had BHAVNA on CKD due to tubular injury which is improving; Her renal function is close to baseline . She has history of renal calculi but has not had a problem with it recently. Her blood pressure is currently at goal. She is not on any immunosuppression for sarcoid. She can continue current dose of torsemide. Her urine output is good. Her volume status is optimal on current medication regimen. She should be on a low-sodium diet. She is on Jardiance. She will benefit by losing some weight. She should maintain fluid restriction. I did not make any medication changes today. Answered all her questions. Follow-up appointment given. Orders: Orders Creatinine 3 Months I10 - Essential (primary) hypertension, N18.31 - Chronic kidney disease, stage 3a Blood Urea Nitrogen 3 Months I10 - Essential (primary) hypertension, N18.31 - Chronic kidney disease, stage 3a Calcium 3 Months I10 - Essential (primary) hypertension, N18.31 - Chronic kidney disease, stage 3a Electrolytes 3 Months I10 - Essential (primary) hypertension, N18.31 - Chronic kidney disease, stage 3a Coding Level of Care Code Est Pt Level 4 (35562) Diagnoses CKD stage 3a, GFR 45-59 ml/min N18.31 Primary hypertension I10 Hypertension type: primary hypertension
[2024-01-07 11:39] VITALS: BP 150/64; PULSE 66; O2SAT 95; BMI 32.3
== END 2024-01-07 11:51 | disposition home or self-care (01) ==
PROVIDERS: PCP Family Medicine; Visit Provider Internal Medicine Nephrology
DX: N18.31 Chronic kidney disease, stage 3a (principal); I10 Essential (primary) hypertension
CPT/HCPCS: 99214

== ENCOUNTER → 2024-01-07 10:59 | Outpatient (BNVA) | payer MEDICARE, MEDICAID, SELFPAY | PROVIDERS: PCP Family Medicine; Visit Provider Internal Medicine Nephrology | DX: E11.22 Type 2 diabetes mellitus with diabetic chronic kidney disease (principal); I12.9 Hypertensive chronic kidney disease with stage 1 through stage 4 chronic kidney disease, or unspecified chronic kidney disease; N18.31 Chronic kidney disease, stage 3a; Z79.4 Long term (current) use of insulin | CPT/HCPCS: 99212 ==

== ENCOUNTER 2024-04-07 10:35 | Outpatient (AMB) | payer MEDICARE, MEDICAID, SELFPAY ==
--- NOTE | 2024-04-07 11:09 | HO.NEPHOV_ITS ---
Vital Signs 04/07/24 11:10 Height 5 ft 2 in Weight 174 lb 6 oz BMI 31.9 BP 130/60 Blood Pressure Location Lt brachial Position Sitting Pulse 71 Pulse Source Pulse Oximeter Pulse Oximetry (%) 98 Oxygen Delivery Method Room Air Intake Visit Reasons: 3mon follow up/ LVM Lumber Tallier Required: Yes Lumber Tallier Language: Machine Spreader Services: Lumber Tallier Present Lumber Tallier Name: Tina [id number] Information Interpreted: clinical only Accompanied by: Self / Same As Patient Allergies codeine Allergy (Verified 04/07/24 11:10) tachycardia cortisone Allergy (Verified 04/07/24 11:10) tachycardia hydromorphone Allergy (Verified 04/07/24 11:10) swelling, Short of Breath latex Allergy (Verified 04/07/24 11:10) Unknown morphine Allergy (Verified 04/07/24 11:10) Hallucinations Penicillins Allergy (Verified 04/07/24 11:10) Swelling Sulfa (Sulfonamide Antibiotics) Allergy (Verified 04/07/24 11:10) Swelling HPI Comments Details: I had the pleasure of seeing Francisca in follow-up for chronic kidney disease, nephrolithiasis, proteinuria on a backdrop of sarcoidosis. She underwent CT scan of the chest which was unchanged from prior in terms of pulmonary sarcoid. Pulmonology did not recommend systemic steroids or methotrexate. She likely has pulmonary artery hypertension in the setting of pulmonary sarcoid and heart failure with a preserved ejection fraction. She is currently on torsemide. Her blood sugar is better controlled on current insulin dosages. She did not have any new complaints at the time of this office visit. [facility] Medical History (Updated 09/18/23 @ 11:37 by Yonathan Tesfaye MD) Obesity STEMI (ST elevation myocardial infarction) Peripheral neuropathy Mediastinal adenopathy Cirrhosis Chronic low back pain Type II diabetes mellitus Elevated cholesterol HTN (hypertension) CKD (chronic kidney disease) stage 3, GFR 30-59 ml/min CAD (coronary artery disease) Sarcoidosis of lung Surgical History History of tubal ligation Hx of endoscopy Hx laparoscopic cholecystectomy Hx of colonoscopy History of heart artery stent Social History Are you a primary home care and home health aides teacher to a significant other at home: No Do you presently have visiting nurse or other home services: No Patient Tobacco Use Status: Never used Tobacco Review of Systems Const All systems reviewed & are unremarkable except as noted in HPI and below Physical Exam Vital Signs: Last Vital Signs Pulse 71 04/07/24 11:10 BP 130/60 04/07/24 11:10 Pulse Ox 98 04/07/24 11:10 Oxygen Delivery Method Room Air 04/07/24 11:10 BMI result Body Mass Index 31.9 Const General: comfortable and no acute distress Orientation/consciousness: patient oriented x3 HEENT Head: Yes normocephalic Mouth: Normal oral and palatal mucosa present Eyes EOM: EOMs intact bilaterally Neck Neck: Yes supple Resp Auscultation: clear to auscultation bilaterally Cardio Jugular venous distension: no JVD Rate: regular rate GI Palpation (GI): Soft to palpation Auscultation: normal bowel sounds General: Yes no CVA tenderness Back/Spine/Pelvis Back: no CVA tenderness Skin General skin exam: no rashes or lesions noted Neuro General: patient oriented x3 and moves all extremities Extrem General: Yes no pedal edema Results Reviewed Nephrology Results: No Data to Display Assessment & Plan Assessment & Plan (1) CKD stage 3a, GFR 45-59 ml/min: Code(s): N18.31 - Chronic kidney disease, stage 3a Category: Medical (2) HTN (hypertension): Code(s): I10 - Essential (primary) hypertension Category: Medical Qualifiers: Hypertension type: primary hypertension Qualified Code(s): I10 - Essential (primary) hypertension Plan She has history of renal calculi but has not had a problem with it recently. Her blood pressure is currently at goal. She is not on any immunosuppression for sarcoid. She can continue current dose of torsemide. Her urine output is good. Her volume status is optimal on current medication regimen. She should be on a low-sodium diet. She is on Jardiance. She will benefit by losing some weight. She should maintain fluid restriction. I did not make any medication changes today. Answered all her questions. Follow-up appointment given. Orders: Orders Electrolytes Today I10 - Essential (primary) hypertension, N18.31 - Chronic kidney disease, stage 3a Blood Urea Nitrogen 3 Months I10 - Essential (primary) hypertension, N18.31 - Chronic kidney disease, stage 3a Creatinine Today I10 - Essential (primary) hypertension, N18.31 - Chronic kidney disease, stage 3a Blood Urea Nitrogen Today I10 - Essential (primary) hypertension, N18.31 - Chronic kidney disease, stage 3a Calcium Today I10 - Essential (primary) hypertension, N18.31 - Chronic kidney disease, stage 3a Creatinine 3 Months I10 - Essential (primary) hypertension, N18.31 - Chronic kidney disease, stage 3a Electrolytes 3 Months I10 - Essential (primary) hypertension, N18.31 - Chronic kidney disease, stage 3a Calcium 3 Months I10 - Essential (primary) hypertension, N18.31 - Chronic kidney disease, stage 3a Protein Creatinine Ratio, Ur Today I10 - Essential (primary) hypertension, N18.31 - Chronic kidney disease, stage 3a Coding Level of Care Code Est Pt Level 4 (75743) Diagnoses CKD stage 3a, GFR 45-59 ml/min N18.31 Primary hypertension I10 Hypertension type: primary hypertension
[2024-04-07 11:10] VITALS: BP 130/60; PULSE 71; O2SAT 98; BMI 31.9
--- OUTSIDE RECORDS SUMMARY | 2024-04-07 11:44 | XMS_ITS | Encounter Summary ---
Author Organization [facility], Address [address] [place] [address] Phone Care Team Providers Care Washroom Cleaner Name Role Phone Renato Nunn MD Primary Care Provider + [phone] Encounter Details Date Type Department Care Team (Late Contact Info) Description 12/23/2023 Documentation Only [facility] [address] [place] [address] Bairon Dumas [place] [address] [place] [phone] Social History Tobacco Use Types Packs/Day Years Used Date Smoking Tobacco: Never Smokeless Tobacco: Never Alcohol Use Standard Drinks/Week Comments No 0 (1 standard drink = 0.6 oz pur e alcohol) Comments Unknown Sex and Gender Information Value Date Recorded Sex Assigned at Not on file Legal Sex Female 5:27 PM EST Gender Identity Not on file Sexual Orientation Not on file documented as of this encounter Plan of Treatment Upcoming Encounters Date Type Department Care Team (Late st Contact Info) Description 05/27/2024 2:45 PM EDT Office Visit [facility] [address] [place] [address] Aryan West MD [address] [place] [address] [place] [phone] documented as of this encounter Visit Diagnoses Not on filedocumented in this encounter Care Teams Washroom Cleaner Relationship Specialty Start Date End Date Renato Nunn MD [facility] [address] [place], [place] PCP - General 03/07/20 documented as of this encounter
--- OUTSIDE RECORDS SUMMARY | 2024-04-07 11:44 | XMS_ITS | Encounter Summary ---
Author Organization [facility] [place], Address [address] [place] [address] Phone Care Team Providers Care Manufactured Buildings Supervisor Name Role Phone Renato Nunn MD Primary Care Provider + [phone] Encounter Details Date Type Department Care Team (Late Contact Info) Description 12/23/2023 Documentation Only [facility] [address] [place] [address] Bairon Dumas [place] [address] [place] [phone] Social History Tobacco Use Types Packs/Day Years [...] Visit [facility] [address] [place] [address] Aryan West MD [address] [place] [address] [place] [phone] documented as of this encounter Visit Diagnoses Not on filedocumented in this encounter Care Teams Manufactured Buildings Supervisor Relationship Specialty Start Date End Date Renato Nunn MD [facility] [address] [place], [place] PCP - General 03/07/20 documented as of this encounter
--- OUTSIDE RECORDS SUMMARY | 2024-04-07 11:44 | XMS_ITS | Clinical Summary ---
Author Organization [facility] [place], Address [address] [place] [address] [place] [address] Phone Care Team Providers Care Cracker And Cookie Machine Operator Name Role Phone Renato Nunn MD Primary Care Provider + [phone] Allergies Active Allergy Reactions Criticality Noted Date Comments Codeine 05/12/2020 Cortisone 05/12/2020 Hydromorphone 05/12/2020 Latex 03/20/2022 Other reaction(s): sensitivity Morphine 05/12/2020 Penicillin G 05/12/2020 Sulfa Antibiotics 05/12/2020 Medications amLODIPine (NORVASC) 5 MG tablet Take 0.5 tablets by mouth 1 (one) time each day Active aspirin (ST EV) 81 MG EC tablet Take 1 tablet by mouth 1 (one) time each day 5 Active atorvastatin (LIPITOR) 80 MG tablet Take 1 tablet by mouth at bed time 5 Active carvedilol (COREG) 25 MG tablet Take 1 tablet by mouth 2 (two) times a day 4 Active omega-3 (FISH OIL) 1000 MG capsule Take 1 capsule by mouth 2 (two) times a day 5 Active ascorbic acid (VITAMIN C) 500 MG tablet Take 500 mg by mouth 1 (one) time each day Active cholecalciferol (VITAMIN D-3) 25 MCG (1000 UT) tablet Take 1,000 Units by mouth 1 (one) time each day Active HumuLIN R U-500 KWIKPEN 500 UNIT/ML CONCENTRATED injection 1 Active timolol (TIMOPTIC) 0.5 % ophthalmic solution Administer 1 drop into the right eye 1 (one) time each day in the morning 1 Active acetaminophen (TYLENOL) 500 MG tablet Take 1,000 mg by mouth 0 Active Diclofenac Sodium 1 % gel Apply 1 application topically 0 Active isosorbide dinitrate (ISORDIL) 30 MG tablet Take 2 tablets (60 mg total) by mouth 1 (one) time each day 2 Active torsemide (DEMADEX) 5 MG tablet Take 5 mg by mouth 1 (one) time each day Active Active Problems Problem Noted Date Diagnosed Date Allergy to penicillin 06/15/2022 Hypertension 03/20/2022 COVID-19 10/14/2021 Overview (06/15/2022): Problem added by Discern Expert Obese class I 06/27/2021 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 Severe obesity 03/28/2021 Type 2 diabetes mellitus 03/28/2021 Dysuria 09/01/2020 Acute nontraumatic kidney injury 05/12/2020 Chronic kidney disease stage 2 05/12/2020 Essential hypertension 05/12/2020 Proteinuria 05/12/2020 Renal disorder due to type 2 diabetes mellitus 0 05/12/2020 Renal stone 05/12/2020 Resolved Problems Problem Noted Date Diagnosed Date Resolved Date Acute ST segment elevation m yocardial infarction 03/28/2021 06/27/2021 Overview (03/28/2021): 08/10/10 with bms to rca s/p bms to rca Allergy to sulfonamide 03/28/202106/27 Cataract 03/28/2021 06/27/2021 Chronic low back pain 03/28/20212021 Cirrhosis of liver 03/28/2021 2 Coronary arteriosclerosis 03/28/2021 Hyperlipidemia 03/28/2021 06/27/2021 Mediastinal lymphadenopathy 03/28/2021 06/27/2021 Patient care statuses 03/28/20212021 Peripheral neuropathy 03/28/20212021 Steatosis of liver 03/28/2021 2 Tubular adenoma of colon 03/28/202104/2021 Overview (03/28/2021): 06/2017, also finding of interanl hemorrhoids Hypertension 09/01/2020 06/27/2021 Hypercalcemia 05/12/2020 06/27/2021 Sarcoidosis 05/12/2020 06/27/2021 Encounters Date Type Department Care Team Description 01/09/2024 Office Communication [facility] [place], [address] [place] [address] Bairon Dumas [place] from Last 3 Months Immunizations Name Administration Dates Next Due Hepatitis B 07/01/2012 Influenza Whole 03/09/2015 Influenza, Quadrivalent, Pre servative Free 01/22/2022 Influenza, Quadrivalent, Wit h Preservative 02/03/2016 Influenza, Unspecified 12/07/2019,2018,03/05/2018,12/31,04/28/2014 Pneumococcal Polysaccharide 08/13/2010 Tdap 08/07/2011 Family History Medical History Relation Comments Cancer Mother Hypertension Sibling 1 sister Diabetes Sibling 2 sister Relation Status Comments Father Mother Sibling 1 Sibling 2 Social History Tobacco Use Types Packs/Day Years Used Date Smoking Tobacco: Never Smokeless Tobacco: Never Tobacco Cessation:Counseling Given: Not Answered Alcohol Use Standard Drinks/Week Comments No 0 (1 standard drink = 0.6 oz pur e alcohol) Comments Unknown Sex and Gender Information Value Date Recorded Sex Assigned at Not on file Legal Sex Female 5:27 PM EST Gender Identity Not on file Sexual Orientation Not on file Last Filed Vital Signs Vital Sign Reading Time Taken Comments Blood Pressure 124/60 03/20/2022 1:51 PM EST Pulse 70 06/27/2021 3:03 PM EDT Temperature - - Respiratory Rate - - Oxygen Saturation 96% 06/27/2021 3:03 PM EDT Inhaled Oxygen Concentration - - Weight 81 kg (178 lb 9.6 oz) 03/20/2022 1:51 PM EST Height 157.5 cm (5' 2 ) 06/27/2021 3:03 PM EDT Body Mass Index 32.67 06/27/2021 3:03 PM EDT Plan of Treatment Upcoming Encounters Date Type Department Care Team (Late st Contact Info) Description 05/27/2024 2:45 PM EDT Office Visit [facility] [place], [address] [place] [address] Aryan West MD [address] [facility] [address] [facility] [address] [place] [address] Health Maintenance Due Date Last Done Comments Breast Cancer Screening 1960 Colorectal Cancer Screening: Annual FOBT 2007 Colorectal Cancer Screening: Colonoscopy 2007 Colorectal Cancer Screening: Sigmoidoscopy 2007 Pneumococcal Vaccine: 65+ Years (2 of 2 - PCV) 08/14/2011 08/13/2010 Diabetes: Ophthalmology Exam 03/28/2020 Diabetes: Pedal Pulse Checked 03/28/2020 Diabetes: Sensory Foot Exam 03/28/2020 Diabetes: Visual Foot Exam 03/28/2020 Diabetes: Hemoglobin A1C 11/09/2020 08/09/2020 Influenza Vaccine (#1) 2023 2, 12/07/2019, 02/11/2019, Additional history exists Hepatitis B Vaccine Aged Out 07/01/2012 No longe r eligible based on patient's age to complete this topic Procedures Procedure Name Priority Date/Time Associated Diagnosis Comments EXT RESULT ENTRY Routine 08/09/2020 from Last 3 Months or Most Recently Relevant to Health Maintenance Results * (ABNORMAL) EXT RESULT ENTRY (08/09/2020) Sodium 142(A) 137 - 147 Potassium 4.9 3.4 - 5.5 Chloride 107 99 - 108 Bicarbonate (CO2) 29 22 - 30 mmol/L Anion Gap 6 <=30 MMOL/L Glucose 201(A) 60 - 200 BUN 22(A) 4 - 21 mg/dL Creatinine 1.20(A) 0.50 - 1.10 mg/dL Calcium 9.9 8.7 - 10.7 mg/dL eGFR Non-Afr Kazakh 50 eGFR 58 Hemoglobin A1C 11.4(A) 4.0 - 6.0 08/09/2020 us Historical Provider LAB BLOOD ORDERABLES Paula l Result from Last 3 Months or Most Recently Relevant to Health Maintenance Insurance [address] [place] [address] MEDICARE MEDICAID [place] [address] [place] [address] MEDICARE [place]ICAID [place] Care Teams Cracker And Cookie Machine Operator Relationship Specialty Start Date End Date Renato Nunn MD [facility] [address] [place], [place] PCP - General 03/07/20
--- OUTSIDE RECORDS SUMMARY | 2024-04-07 11:44 | XMS_ITS | Clinical Summary ---
Author Organization [facility] it Address [address] [place] [address] Care Team Providers Care Gantry Crane Operator Name Role Phone Renato Nunn MD Primary Care Provider [phone] Allergies Active Allergy Reactions Criticality Noted Date Comments Codeine 12/04/2023 Cortisone 12/04/2023 Hydromorphone 12/04/2023 Latex 12/04/2023 Morphine 12/04/2023 Penicillin G 12/04/2023 Sulfa (Sulfonamide Antibiotics) 10/2023 Medications acetaminophen (TYLENOL) 325 mg tablet Take by mouth every 6 (six) hours if needed for mild pain. Active amLODIPine-ator vastatin (CADUET) 10-10 mg per tablet Take 1 tablet by mouth 1 (one) time each day. Active atorvastatin (LIPITOR) 80 mg tablet Take 1 tablet (80 mg total) by mouth at bedtime. Active empagliflozin (Jardiance) 10 mg tablet Take 1 tablet (10 mg total) by mouth 1 (one) time each day in the morning. Active gabapentin (NEURONTIN) 100 mg capsule Take 1 capsule (100 mg total) by mouth 3 (three) times a day. Active insulin zinc extend human rec (INSULIN ZINC EXTENDED HUMAN SUBQ) Inject under the skin. Active lactulose (CHRONULAC) solution Take 15 mL (10 g total) by mouth 2 (two) times a day. Active linaCLOtide (Linzess) 290 mcg capsule Take 1 capsule (290 mcg total) by mouth 1 (one) time each day before breakfast. Active loratadine (CLARITIN) 10 mg tablet Take 1 tablet (10 mg total) by mouth 1 (one) time each day. Active lactose-reduced food (NUTRITIONAL SUPPLEMENT ORAL) Take by mouth. Vitamin D Booster Active pantoprazole (PROTONIX) 40 mg EC tablet Take 1 tablet (40 mg total) by mouth 1 (one) time each day before breakfast. Do not crush, chew, or split. Active polyethylene glycol (MIRALAX) 17 gram packet Take 17 g by mouth 1 (one) time each day. Active torsemide (DEMADEX) 5 mg tablet Take 1 tablet (5 mg total) by mouth 1 (one) time each day. Active Immunizations Name Administration Dates Next Due Influenza, Unspecified 01/22/2022 Social History Tobacco Use Types Packs/Day Years Used Date Smoking Tobacco: Never Assessed Comments Unknown Sex and Gender Information Value Date Recorded Sex Assigned at Not on file Legal Sex Female 5:12 PM EST Gender Identity Not on file Sexual Orientation Not on file Last Filed Vital Signs Vital Sign Reading Time Taken Comments Blood Pressure 125/75 12/03/2023 10:22 AM EDT Pulse 74 12/03/2023 10:22 AM EDT Temperature - - Respiratory Rate - - Oxygen Saturation - - Inhaled Oxygen Concentration - - Weight 79.4 kg (175 lb) 12/03/2023 10:22 AM EDT Height 157.5 cm (5' 2 ) 12/03/2023 10:22 AM EDT Body Mass Index 32.01 12/03/2023 10:22 AM EDT Plan of Treatment Upcoming Encounters Date Type Department Care Team ([facility] st Contact Info) Description 06/08/2024 1:00 PM EDT Office Visit Gastroenterology - [address] [phone] Rachael Brizuela NP [address] [address] Health Maintenance Due Date Last Done Comments DTaP,Tdap,and Td Vaccines (1 - Tdap) 1965 Hepatitis A Vaccines (1 of 2 - Risk 2-dose series) 1977 Pneumococcal Vaccine: 50+ Ye ars (1 of 2 - PCV) 1977 Zoster Vaccines (1 of 2) 02/10/2008 Hepatitis B Vaccines (1 of 3 - Risk 3-dose series) 2018 RSV Immunization Patients 60 + Years Old (1 - Risk 60-74 years 1-dose series) 2018 Breast Cancer Screening 03/06/2020 03/06/2018 COVID-19 Vaccine (2023-2 5 season) 2023 Influenza Vaccine (#1) 2023 01/22/2022 Colorectal Cancer Screening: Colonoscopy 12/03/2023 Depression Screening 12/03/2023 Falls Risk Assessment 12/03/2023 Hepatitis C Screening 12/03/2023 Osteoporosis Screening (Bone Density Screening) 12/03/2023 Social Influencers of Health Screening 12/03/2023 HIB Vaccines Aged Out No longer eligi ble based on patient's age to complete this topic HPV Vaccines Aged Out No longer eligi ble based on patient's age to complete this topic IPV Vaccines Aged Out No longer eligi ble based on patient's age to complete this topic MMR Vaccines Aged Out No longer eligi ble based on patient's age to complete this topic Meningococcal ACWY Vaccine Aged Out N o longer eligible based on patient's age to complete this topic Meningococcal B Vacine Aged Out No lo nger eligible based on patient's age to complete this topic RSV Immunization Patients Un sita 20 months Aged Out No longer eligible b ased on patient's age to complete this topic Varicella Vaccines Aged Out No longer eligible based on patient's age to complete this topic Procedures Procedure Name Priority Date/Time Associated Diagnosis Comments [facility] SCREENING DIGITAL Routine 03/06/2018 10:32 AM EST Encounter for screening mammogram for malignant neoplasm of breast from Last 3 Months or Most Recently Relevant to Health Maintenance Results * BHARGAVI SCREENING DIGITAL (03/06/2018 10:32 AM EST) Anatomical Region Laterality Modality Mammography 03/06/2018 8:39 AM EST Narrative 03/06/2018 10:32 AM EST [facility] Diagnostic Imaging Department [address] [place] [address] Patient: ??ALPA DAVID ?/Age/Sex: 1960 - 58 - F Unit#: ??[id number] ? Location/Status: ??SPDIMAM/REG CLI ? Mnemonic/Ordering Site: ??DIGSC/SPMAM Ordering Physician: ??AL GARZA MD Bhargavi Screening Digital - 03/06/18 - 905 INDICATION: Screening.The patient has a family history of breast cancer involving her mother or sister and her maternal grandmother, ages not specified. COMPARISON: Prior mammograms dating back to 2008 TECHNIQUE: Routine views of both breasts were obtained using full-field direct digital mammography. Bilateral tomosynthesis was performed in MLO projection. Computer Aided Detection was utilized. BREAST PARENCHYMAL COMPOSITION: The breast parenchyma is composed of scattered fibroglandular densities. (Category b density ) . FINDINGS: ??There is no suspicious finding within either breast. Stable intraparenchymal lymph node in the upper outer quadrant of the left breast compared to multiple prior studies IMPRESSION: 1. No mammographic evidence of malignancy. 2. Annual screening mammography is recommended . OVERALL FINAL ASSESSMENT: BI-RADS Assessment Category 2: Benign. PQRI CPT II 3342 F A negative mammogram in the presence of clinically suspicious palpable abnormality does not preclude the possibility of malignancy or alter the indications for biopsy. Note: Patient information entered into a reminder system with a target due date for the next mammogram: ??CPT II 7025F G0202/[id number] Dictating Physician: ??SIDRA GUEVARA MD Electronically Signed by: ??SIDRA GUEVARA MD Dic Date/Time: ??03/06/18 1029 Sign date/Time: ??03/06/18 1032 Procedure Note Sidra Guevara MD - 02/14/2022 [facility] Diagnostic Imaging Department [address] [place] [address] Patient: ALPA DAVID D.O.B./Age/Sex: 1960 - 58 - F Unit#: [id number] Location/Status: SPDIMAM/REG CLI Mnemonic/Ordering Site: [facility] Ordering Physician: AL GARZA MD Bhargavi Screening Digital - 03/06/[address] INDICATION: Screening.The patient has a family history of breast cancer involving her mother or sister and her maternal grandmother, ages notspecified. COMPARISON: Prior mammograms dating back to 2008 TECHNIQUE: Routine views of both breasts were obtained using full-fielddirect digital mammography. Bilateral tomosynthesis was performed in MLOprojection. Computer Aided Detection was utilized. BREAST PARENCHYMAL COMPOSITION: The breast parenchyma is composed ofscattered fibroglandular densities. (Category b density ) . FINDINGS: There is no suspicious finding within either breast. Stable intraparenchymal lymph node in the upper outer quadrant of the leftbreast compared to multiple prior studies IMPRESSION: 1. No mammographic evidence of malignancy. 2. Annual screening mammography is recommended . OVERALL FINAL ASSESSMENT: BI-RADS Assessment Category 2: Benign. PQRI CPT II 3342 F A negative mammogram in the presence of clinically suspicious palpable abnormality does not preclude the possibility of malignancy or alter the indications for biopsy. Note: Patient information entered into a reminder system with a target duedate for the next mammogram: CPT II 7025F G0202/06772 [id number] Dictating Physician: SIDRA GUEVARA MD Electronically Signed by: SIDRA GUEVARA MD Dic Date/Time: 03/06/18 1029 Sign date/Time: 03/06/18 1032 Al Garza MD IMG BI PROCEDURES Final R esult from Last 3 Months or Most Recently Relevant to Health Maintenance Care Teams Gantry Crane Operator Relationship Specialty Start Date End Date Renato Nunn MD [address] [place] [address] PCP - General 07/30/23
== END 2024-04-07 11:48 | disposition home or self-care (01) ==
PROVIDERS: PCP Family Medicine; Visit Provider Internal Medicine Nephrology
DX: N18.31 Chronic kidney disease, stage 3a (principal); I10 Essential (primary) hypertension
CPT/HCPCS: 99214

== ENCOUNTER 2024-04-07 10:35 | Outpatient (REF) | payer MEDICARE, MEDICAID, SELFPAY ==
--- OUTSIDE RECORDS SUMMARY | 2024-04-07 13:13 | XMS_ITS | Clinical Summary ---
Author Organization [facility] it Address [address] [place] [address] Care Team Providers Care Spooling Operator Name Role Phone Renato Nunn MD Primary Care Provider [phone] Allergies Active Allergy Reactions Criticality Noted Date [...] Upcoming Encounters Date Type Department Care Team ([facility] st Contact Info) Description 06/08/2024 1:00 PM EDT Office Visit Gastroenterology - [address] [phone] Rachael Brizuela NP [address] [address] Health Maintenance Due Date Last Done Comments [...] Procedure Name Priority Date/Time Associated Diagnosis Comments [facility] SCREENING DIGITAL Routine 03/06/2018 10:32 AM EST Encounter for screening mammogram for malignant neoplasm of breast from Last 3 Months or Most Recently Relevant to Health Maintenance Results * BHARGAVI SCREENING DIGITAL (03/06/2018 10:32 AM EST) Anatomical Region Laterality Modality Mammography 03/06/2018 8:39 AM EST Narrative 03/06/2018 10:32 AM EST [facility] Diagnostic Imaging Department [address] [place] [address] Patient: ??ALPA DAVID ?/Age/Sex: 1960 - 58 - F Unit#: ??[id number] ? Location/Status: ??SPDIMAM/REG CLI ? Mnemonic/Ordering Site: [...] for the next mammogram: ??CPT II 7025F [id number]/[id number] +[id number] Dictating Physician: ??SIDRA GUEVARA MD Electronically Signed by: ??SIDRA GUEVARA MD Dic Date/Time: ??03/06/18 1029 Sign date/Time: ??03/06/18 1032 Procedure Note Sidra Guevara MD - 02/14/2022 [facility] Diagnostic Imaging Department [address] [place] [address] Patient: ALPA DAVID D.O.B./Age/Sex: 1960 - 58 - F Unit#: [id number] Location/Status: SPDIMAM/REG CLI Mnemonic/Ordering Site: [facility] Ordering Physician: AL GARZA MD Bhargavi Screening [...] for the next mammogram: CPT II 7025F [id number] Dictating Physician: SIDRA GUEVARA MD Electronically Signed by: SIDRA GUEVARA MD Dic Date/Time: 03/06/18 1029 Sign date/Time: 03/06/18 1032 Al Garza MD IMG BI PROCEDURES Final R esult from Last 3 Months or Most Recently Relevant to Health Maintenance Care Teams Spooling Operator Relationship Specialty Start Date End Date Renato Nunn MD [address] [place] [address] PCP - General 07/30/23
--- OUTSIDE RECORDS SUMMARY | 2024-04-07 13:13 | XMS_ITS | Encounter Summary ---
Author Organization [facility] [place], Address [address] [place] [address] Phone Care Team Providers Care Engraver Block Name Role Phone Renato Nunn MD Primary Care Provider + [phone] Encounter Details Date Type Department Care Team (Late Contact Info) Description 12/23/2023 Documentation Only [facility] [address] [place] [address] Bairon Dumas [place] [address] [place] [phone] Social History Tobacco Use Types Packs/Day Years [...] Visit [facility] [address] [place] [address] Aryan West MD [address] [place] [address] [place] [phone] documented as of this encounter Visit Diagnoses Not on filedocumented in this encounter Care Teams Engraver Block Relationship Specialty Start Date End Date Renato Nunn MD [facility]ULT [facility] [address] [place], [place] PCP - General 03/07/20 documented as of this encounter
--- OUTSIDE RECORDS SUMMARY | 2024-04-07 13:13 | XMS_ITS | Encounter Summary ---
Author Organization [facility] [place], Address [address] [place] [address] Phone Care Team Providers Care Biztalk Architect Name Role Phone Renato Nunn MD Primary Care Provider + [phone] Encounter Details Date Type Department Care Team (Late Contact Info) Description 12/23/2023 Documentation Only [facility] [address] [place] [address] Bairon Dumas [place] [address] [place] [phone] Social History Tobacco Use Types Packs/Day Years [...] Visit [facility] [address] [address] Aryan West MD [address] [place] [address] [place] [phone] documented as of this encounter Visit Diagnoses Not on filedocumented in this encounter Care Teams Biztalk Architect Relationship Specialty Start Date End Date Renato Nunn MD [facility] ADULT MEDICIN [address] [place], [place] PCP - General 03/07/20 documented as of this encounter
--- OUTSIDE RECORDS SUMMARY | 2024-04-07 13:13 | XMS_ITS | Clinical Summary ---
Author Organization [facility], Address [address] [place] [address] [place] [address] Phone Care Team Providers Care Hand Outside Cutter Name Role Phone Renato Nunn MD Primary Care Provider + [phone] Allergies Active Allergy Reactions Criticality Noted Date [...] Communication [facility], [address] [place] [address] Bairon Dumas [place] from Last 3 Months [...] Visit [facility], [address] [place] [address] Aryan West MD [address] [place] [address] Health Maintenance Due Date Last Done [...] 9.9 8.7 - 10.7 mg/dL eGFR Non-Afr Mosotho 50 eGFR 58 Hemoglobin A1C 11.4(A) 4.0 - 6.0 08/09/2020 us Historical Provider LAB BLOOD ORDERABLES Paula l Result from Last 3 Months or Most Recently Relevant to Health Maintenance Insurance [address] [place] [address] MEDICARE MEDICAID [place] [address] [place] [address] MEDICARE MEDICAID [place] Care Teams Hand Outside Cutter Relationship Specialty Start Date End Date Renato Nunn MD [facility] [address] [place], [place] PCP - General 03/07/20
[2024-04-07 18:33] LABS: Anion Gap 11 (12-20); Blood Urea Nitrogen 24 mg/dL (9-16); Calcium 9.2 mg/dL (8.4-10.2); Carbon Dioxide 20 mmol/L (22-29); Chloride 112 mmol/L (96-108); Estimated Glomerular Filt Rate 37; Potassium 3.6 mmol/L (3.3-5.1); Sodium 139 mmol/L (135-145)
[2024-04-07 18:59] LABS: Creatinine Urine 40.27 mg/dL; Protein/Creatinine Ratio, Ur 1.49 (<0.2); Total Protein Urine Random 60 mg/dL (<12)
== END 2024-04-07 10:36 | disposition home or self-care (01) ==
LOC: HO.HKASLDS 10:35
PROVIDERS: PCP Family Medicine; Visit Provider Internal Medicine Nephrology
DX: I12.9 Hypertensive chronic kidney disease with stage 1 through stage 4 chronic kidney disease, or unspecified chronic kidney disease (principal); N18.31 Chronic kidney disease, stage 3a
CPT/HCPCS: 36415; 80051; 82310; 82565; 82570; 84156; 84520; 99212

== ENCOUNTER 2024-05-26 10:42 | Outpatient (AMB) | payer MEDICARE, MEDICAID, SELFPAY ==
--- NOTE | 2024-05-26 11:10 | HO.NEPHOV ---
Vital Signs 05/26/24 11:13 Height 5 ft 2 in Weight 177 lb 2 oz BMI 32.4 BP 120/60 Blood Pressure Location Lt brachial Position Sitting Pulse 59 Pulse Source Pulse Oximeter Pulse Oximetry (%) 97 Oxygen Delivery Method Room Air Intake Visit Reasons: FU from [facility] ER/ Discharged on 05/21 Food Production Worker Required: Yes Food Production Worker Language: Gun Stock Maker Services: Food Production Worker Present Food Production Worker Name: Molly [id number] Accompanied by: Daughter Allergies codeine Allergy (Verified 05/26/24 11:12) tachycardia cortisone Allergy (Verified 05/26/24 11:12) tachycardia hydromorphone Allergy (Verified 05/26/24 11:12) swelling, Short of Breath latex Allergy (Verified 05/26/24 11:12) Unknown morphine Allergy (Verified 05/26/24 11:12) Hallucinations Penicillins Allergy (Verified 05/26/24 11:12) Swelling Sulfa (Sulfonamide Antibiotics) Allergy (Verified 05/26/24 11:12) Swelling HPI Comments Details: I had the pleasure of seeing Francisca in follow-up for chronic kidney disease, nephrolithiasis, proteinuria on a backdrop of sarcoidosis. She recently had hospitalization for HF and received IV diuresis. Her renal function has been stable. Her CT scan of the chest which was unchanged from prior in terms of pulmonary sarcoid. Pulmonology did not recommend systemic steroids or methotrexate. She likely has pulmonary artery hypertension in the setting of pulmonary sarcoid and heart failure with a preserved ejection fraction. She is currently on torsemide and Farxiga. Her blood sugar is better controlled on current insulin dosages. She did not have any new complaints at the time of this office visit. [facility] Medical History (Updated 09/18/23 @ 11:37 by Yonathan Tesfaye MD) Obesity STEMI (ST elevation myocardial infarction) Peripheral neuropathy Mediastinal adenopathy Cirrhosis Chronic low back pain Type II diabetes mellitus Elevated cholesterol HTN (hypertension) CKD (chronic kidney disease) stage 3, GFR 30-59 ml/min CAD (coronary artery disease) Sarcoidosis of lung Surgical History History of tubal ligation Hx of endoscopy Hx laparoscopic cholecystectomy Hx of colonoscopy History of heart artery stent Social History Are you a primary acute care nurse practitioner to a significant other at home: No Do you presently have visiting nurse or other home services: No Patient Tobacco Use Status: Never used Tobacco Review of Systems Const All systems reviewed & are unremarkable except as noted in HPI and below Physical Exam Vital Signs: Last Vital Signs Pulse 59 05/26/24 11:13 BP 120/60 05/26/24 11:13 Pulse Ox 97 05/26/24 11:13 Oxygen Delivery Method Room Air 05/26/24 11:13 BMI result Body Mass Index 32.4 Const General: comfortable and no acute distress Orientation/consciousness: patient oriented x3 HEENT Head: Yes normocephalic Mouth: Normal oral and palatal mucosa present Eyes EOM: EOMs intact bilaterally Neck Neck: Yes supple Resp Auscultation: clear to auscultation bilaterally Cardio Jugular venous distension: no JVD Rate: regular rate GI Palpation (GI): Soft to palpation Auscultation: normal bowel sounds Neuro General: patient oriented x3 and moves all extremities Results Reviewed Nephrology Results: Sodium 139 mmol/L (135-145) 04/07/24 Potassium 3.6 mmol/L (3.3-5.1) 04/07/24 Chloride 112 mmol/L (96-108) H 04/07/24 Carbon Dioxide 20 mmol/L (22-29) L 04/07/24 BUN 24 mg/dL (9-16) H 04/07/24 Creatinine 1.42 mg/dL (0.5-1.4) H 04/07/24 Calcium 9.2 mg/dL (8.4-10.2) 04/07/24 Urine Creatinine 40.27 mg/dL 04/07/24 Protein/Creatinin Ratio 1.49 (<0.2) H 04/07/24 Assessment & Plan Assessment & Plan (1) CKD stage 3a, GFR 45-59 ml/min: Code(s): N18.31 - Chronic kidney disease, stage 3a Category: Medical (2) HTN (hypertension): Code(s): I10 - Essential (primary) hypertension Category: Medical Qualifiers: Hypertension type: primary hypertension Qualified Code(s): I10 - Essential (primary) hypertension Plan Her blood pressure is currently at goal. She is not on any immunosuppression for sarcoid. She can continue current dose of torsemide. Her urine output is good. Her volume status is optimal on current medication regimen. She should be on a low-sodium diet. She is on Farxiga. She will benefit by losing some weight. She has history of renal calculi but has not had a problem with it recently. She should maintain fluid restriction. I did not make any medication changes today. Answered all her questions. Follow-up appointment given. Orders: Orders Creatinine 6 Weeks I10 - Essential (primary) hypertension, N18.31 - Chronic kidney disease, stage 3a Blood Urea Nitrogen 6 Weeks I10 - Essential (primary) hypertension, N18.31 - Chronic kidney disease, stage 3a Calcium 6 Weeks I10 - Essential (primary) hypertension, N18.31 - Chronic kidney disease, stage 3a Electrolytes 6 Weeks I10 - Essential (primary) hypertension, N18.31 - Chronic kidney disease, stage 3a Coding Level of Care Code Est Pt Level 4 (84799) Diagnoses CKD stage 3a, GFR 45-59 ml/min N18.31 Primary hypertension I10 Hypertension type: primary hypertension
[2024-05-26 11:13] VITALS: BP 120/60; PULSE 59; O2SAT 97; BMI 32.4
--- OUTSIDE RECORDS SUMMARY | 2024-05-26 12:50 | XMS_ITS | Clinical Summary ---
Author Organization [facility] it Address [address] [place] [address] Care Team Providers Care Multicraft Operator Name Role Phone Renato Nunn MD Primary Care Provider Allergies Active Allergy Reactions Criticality Noted Date [...] Upcoming Encounters Date Type Department Care Team ([facility] st Contact Info) Description 06/08/2024 1:00 PM EDT Office Visit Gastroenterology - [address] [phone] Rachael Brizuela NP [address] [address] Health Maintenance Due Date Last Done Comments DTaP,Tdap,and Td Vaccines (1 - Tdap) 1979 Hepatitis A Vaccines (1 of 2 - [...] Procedure Name Priority Date/Time Associated Diagnosis Comments [facility] SCREENING DIGITAL Routine 03/06/2018 10:32 AM EST Encounter for screening mammogram for malignant neoplasm of breast from Last 3 Months or Most Recently Relevant to Health Maintenance Results * BHARGAVI SCREENING DIGITAL (03/06/2018 10:32 AM EST) Anatomical Region Laterality Modality Mammography 03/06/2018 8:39 AM EST Narrative 03/06/2018 10:32 AM EST [facility] Diagnostic Imaging Department [address] [place] [address] Patient: ??ALPA DAVID ?/Age/Sex: 1960 - 58 - F Unit#: ??[id number] ? Location/Status: ??SPDIMAM/REG CLI ? Mnemonic/Ordering Site: [...] for the next mammogram: ??CPT II 7025F [id number] Dictating Physician: ??SIDRA GUEVARA MD Electronically Signed by: ??SIDRA GUEVARA MD Dic Date/Time: ??03/06/18 1029 Sign date/Time: ??03/06/18 1032 Procedure Note Sidra Guevara MD - 02/14/2022 [facility] Diagnostic Imaging Department [address] [place] [address] Patient: ALPA DAVID D.O.B./Age/Sex: 1960 - 58 - F Unit#: [id number] Location/Status: SPDIMAM/REG CLI Mnemonic/Ordering Site: [facility] Ordering Physician: AL GARZA MD Bhargavi Screening [...] for the next mammogram: CPT II 7025F [id number] Dictating Physician: SIDRA GUEVARA MD Electronically Signed by: SIDRA GUEVARA MD Dic Date/Time: 03/06/18 1029 Sign date/Time: 03/06/18 1032 Al Garza MD IMG BI PROCEDURES Final R esult from Last 3 Months or Most Recently Relevant to Health Maintenance Care Teams Multicraft Operator Relationship Specialty Start Date End Date Renato Nunn MD [address] [place] [phone] PCP - General 07/30/23
--- OUTSIDE RECORDS SUMMARY | 2024-05-26 12:50 | XMS_ITS | Clinical Summary ---
Author Organization [facility], Address [address] [place] [address] [place] [address] Phone Care Team Providers Care Thermostat Machine Tender Name Role Phone Renato Nunn MD Primary Care Provider + [phone] Allergies Active Allergy Reactions Criticality Noted Date [...] 06/27/2021 Hypercalcemia 05/12/2020 06/27/2021 Sarcoidosis 05/12/2020 06/27/2021 Immunizations Name Administration Dates Next Due Hepatitis [...] Visit [facility], [address] [place] [address] Aryan West MD [address] [place] [address] [place] [address] Health Maintenance Due Date Last Done [...] 9.9 8.7 - 10.7 mg/dL eGFR Non-Afr Martiniquais 50 eGFR 58 Hemoglobin A1C 11.4(A) 4.0 - 6.0 08/09/2020 Historical Provider LAB BLOOD ORDERABLES Paula l Result from Last 3 Months or Most Recently Relevant to Health Maintenance Insurance [place] Care Teams Thermostat Machine Tender Relationship Specialty Start Date End Date Renato Nunn MD [facility] [address] [place], [place] PCP - General 03/07/20
--- OUTSIDE RECORDS SUMMARY | 2024-05-26 12:50 | XMS_ITS | Encounter Summary ---
Author Organization [facility], Address [address] [place] [address] Phone Care Team Providers Care Thread Inspector Name Role Phone Renato Nunn MD Primary Care Provider + [phone] Encounter Details Date Type Department Care Team (Late Contact Info) Description 12/23/2023 Documentation Only [facility] [address] [place] [address] Bairon Dumas [place] [address] [place] [phone] Social History Tobacco Use Types Packs/Day Years [...] Visit [facility] [address] [place] [address] Aryan West MD [address] [place] [address] [place] [phone] documented as of this encounter Visit Diagnoses Not on filedocumented in this encounter Care Teams Thread Inspector Relationship Specialty Start Date End Date Renato Nunn MD [facility] [address] [place], [place] PCP - General 03/07/20 documented as of this encounter
--- OUTSIDE RECORDS SUMMARY | 2024-05-26 12:50 | XMS_ITS | Encounter Summary ---
Author Organization [facility], Address [address] [place] [address] Phone Care Team Providers Care Circuit Clerk Name Role Phone Renato Nunn MD Primary Care Provider + [phone] Encounter Details Date Type Department Care Team (Late Contact Info) Description 12/23/2023 Documentation Only [facility] [address] [place] [address] [place] [phone] Social History Tobacco Use Types Packs/Day Years [...] [facility] [address] [address] Aryan West MD [address] [place] [address] [place] [phone] documented as of this encounter Visit Diagnoses Not on filedocumented in this encounter Care Teams Circuit Clerk Relationship Specialty Start Date End Date Renato Nunn MD [facility] [address] [place], [place] PCP - General 03/07/20 documented as of this encounter
== END 2024-05-26 11:40 | disposition home or self-care (01) ==
LOC: HO.HKAS 10:42
PROVIDERS: PCP Family Medicine; Visit Provider Internal Medicine Nephrology
DX: N18.31 Chronic kidney disease, stage 3a (principal); I10 Essential (primary) hypertension
CPT/HCPCS: 99214

== ENCOUNTER → 2024-05-26 10:42 | Outpatient (BNVA) | payer MEDICARE, MEDICAID, SELFPAY | PROVIDERS: PCP Family Medicine; Visit Provider Internal Medicine Nephrology | DX: I12.9 Hypertensive chronic kidney disease with stage 1 through stage 4 chronic kidney disease, or unspecified chronic kidney disease (principal); N18.31 Chronic kidney disease, stage 3a; R80.9 Proteinuria, unspecified; Z87.442 Personal history of urinary calculi | CPT/HCPCS: 99212 ==

== ENCOUNTER 2024-08-18 11:29 | Outpatient (AMB) | payer MEDICARE, MEDICAID, SELFPAY ==
--- NOTE | 2024-08-18 11:52 | HO.NEPHOV_ITS ---
Vital Signs 08/18/24 11:53 Height 5 ft 2 in Weight 179 lb 4 oz BMI 32.8 BP 127/60 Blood Pressure Location Lt brachial Position Sitting Pulse 70 Pulse Source Pulse Oximeter Pulse Oximetry (%) 95 Oxygen Delivery Method Room Air Intake Visit Reasons: 2mon follow-up W/labs-Conf Head Of Stock Required: Yes Accompanied by: Daughter Allergies codeine Allergy (Verified 08/18/24 11:55) tachycardia cortisone Allergy (Verified 08/18/24 11:55) tachycardia hydromorphone Allergy (Verified 08/18/24 11:55) swelling, Short of Breath latex Allergy (Verified 08/18/24 11:55) Unknown morphine Allergy (Verified 08/18/24 11:55) Hallucinations Penicillins Allergy (Verified 08/18/24 11:55) Swelling Sulfa (Sulfonamide Antibiotics) Allergy (Verified 08/18/24 11:55) Swelling Do you need a note to return to daycare/school/sports/work: No HPI Comments Details: I had the pleasure of seeing Francisca in follow-up for chronic kidney disease, nephrolithiasis, proteinuria on a backdrop of sarcoidosis. She recently had hospitalization for HF and received IV diuresis. Her renal function has been stable. Her CT scan of the chest which was unchanged from prior in terms of pulmonary sarcoid. Pulmonology did not recommend systemic steroids or methotrexate. She likely has pulmonary artery hypertension in the setting of pulmonary sarcoid and heart failure with a preserved ejection fraction. She is currently on torsemide and Farxiga. Her blood sugar is better controlled on current insulin dosages. She did not have any new complaints at the time of this office visit. [facility] Medical History Obesity STEMI (ST elevation myocardial infarction) Peripheral neuropathy Mediastinal adenopathy Cirrhosis Chronic low back pain Type II diabetes mellitus Elevated cholesterol HTN (hypertension) CKD (chronic kidney disease) stage 3, GFR 30-59 ml/min CAD (coronary artery disease) Sarcoidosis of lung Surgical History History of tubal ligation Hx of endoscopy Hx laparoscopic cholecystectomy Hx of colonoscopy History of heart artery stent Social History Are you a primary health care law specialist to a significant other at home: No Do you presently have visiting nurse or other home services: No Patient Tobacco Use Status: Never used Tobacco Review of Systems Const All systems reviewed & are unremarkable except as noted in HPI and below Physical Exam Vital Signs: BMI result Body Mass Index 32.8 Const General: comfortable and no acute distress Orientation/consciousness: patient oriented x3 HEENT Head: Yes normocephalic Mouth: Normal oral and palatal mucosa present Eyes EOM: EOMs intact bilaterally Neck Neck: Yes supple Resp Auscultation: clear to auscultation bilaterally Cardio Jugular venous distension: no JVD Rate: regular rate GI Palpation (GI): Soft to palpation Auscultation: normal bowel sounds General: Yes no CVA tenderness Back/Spine/Pelvis Back: no CVA tenderness Skin General skin exam: no rashes or lesions noted Neuro General: patient oriented x3 and moves all extremities Extrem General: Yes no pedal edema Assessment & Plan Assessment & Plan (1) CKD stage 3a, GFR 45-59 ml/min: Code(s): N18.31 - Chronic kidney disease, stage 3a Category: Medical (2) HTN (hypertension): Code(s): I10 - Essential (primary) hypertension Category: Medical Qualifiers: Hypertension type: primary hypertension Qualified Code(s): I10 - Essential (primary) hypertension Plan Her blood pressure is currently at goal. She is not on any immunosuppression for sarcoid. She can continue current dose of torsemide. Her urine output is good. Her volume status is optimal on current medication regimen. She should be on a low-sodium diet. She is on Farxiga. She will benefit by losing some weight. She has history of renal calculi but has not had a problem with it recently. She should maintain fluid restriction. I did not make any medication changes today. Answered all her questions. Follow-up appointment given. Orders: Orders Creatinine 3 Months I10 - Essential (primary) hypertension, N18.31 - Chronic kidney disease, stage 3a Blood Urea Nitrogen 3 Months I10 - Essential (primary) hypertension, N18.31 - Chronic kidney disease, stage 3a Electrolytes 3 Months I10 - Essential (primary) hypertension, N18.31 - Chronic kidney disease, stage 3a Calcium 3 Months I10 - Essential (primary) hypertension, N18.31 - Chronic kidney disease, stage 3a Coding Level of Care Code Est Pt Level 4 (18269) Diagnoses CKD stage 3a, GFR 45-59 ml/min N18.31 Primary hypertension I10 Hypertension type: primary hypertension
[2024-08-18 11:53] VITALS: BP 127/60; PULSE 70; O2SAT 95; BMI 32.8
--- OUTSIDE RECORDS SUMMARY | 2024-08-18 13:09 | XMS_ITS | Clinical Summary ---
Author Organization [facility], Address [address] [place] [address] [place] [address] Phone Care Team Providers Care Machine Boss Name Role Phone Renato Nunn MD Primary Care Provider + [phone] Allergies Active Allergy Reactions Criticality Noted Date [...] Hypercalcemia 05/12/2020 06/27/2021 Sarcoidosis 05/12/2020 06/27/2021 Immunizations Immunization Administration Dates Next Due Hepatitis B 07/01/2012 [...] 06/27/2021 3:03 PM EDT Plan of Treatment Health Maintenance Due Date Last Done Comments Breast Cancer Screening 1960 Colorectal Cancer Screening: Annual FOBT 2007 Colorectal Cancer Screening: Colonoscopy 2007 Colorectal Cancer Screening: Sigmoidoscopy 2007 Pneumococcal Vaccine: 50+ Years (2 of 2 - PCV) 08/14/2011 08/13/2010 Diabetes: Ophthalmology Exam 03/28/2020 Diabetes: Pedal Pulse Checked 03/28/2020 Diabetes: Sensory Foot Exam 03/28/2020 Diabetes: Visual Foot Exam 03/28/2020 Diabetes: Hemoglobin A1C 11/09/2020 08/09/2020 Influenza Vaccine (Season Ended) 2024 01/22/2022, 12/07/2019, 02/11/2019, Additional history exists Pneumococcal Vaccine: Peds (0 to 5 Years) and At-Risk Patients (6 to 49 Years) Discontinued 08/13/2010 Hepatitis B Vaccine Aged Out 07/01/2012 No [...] 9.9 8.7 - 10.7 mg/dL eGFR Non-Afr Ivorian 50 eGFR 58 Hemoglobin A1C 11.4(A) 4.0 - 6.0 08/09/2020 us Historical Provider LAB BLOOD ORDERABLES Paula l Result from Last 3 Months or Most Recently Relevant to Health Maintenance Insurance Medicare Medicaid [place] [address] [place] [address] Medicare Medicaid [place] [address] [place] [address] Care Teams Machine Boss Relationship Specialty Start Date End Date Renato Nunn MD [facility] [address] PCP - General 03/07/20
== END 2024-08-18 12:10 | disposition home or self-care (01) ==
LOC: HO.HKAS 11:30
PROVIDERS: PCP Family Medicine; Visit Provider Internal Medicine Nephrology
DX: N18.31 Chronic kidney disease, stage 3a (principal); I10 Essential (primary) hypertension
CPT/HCPCS: 99214

== ENCOUNTER → 2024-08-18 11:29 | Outpatient (BNVA) | payer MEDICARE, MEDICAID, SELFPAY | PROVIDERS: PCP Family Medicine; Visit Provider Internal Medicine Nephrology | DX: I12.9 Hypertensive chronic kidney disease with stage 1 through stage 4 chronic kidney disease, or unspecified chronic kidney disease (principal); N18.31 Chronic kidney disease, stage 3a | CPT/HCPCS: 99212 ==

== ENCOUNTER 2024-10-01 08:47 | Outpatient (REF) | payer MEDICARE, MEDICAID, SELFPAY ==
[2024-10-01 13:11] LABS: Appearance Urine Clear; Glucose Urine UA >=1000 mg/dL (Negative); PH 5.0 (5.0-9.0); Specific Gravity - Urine 1.020 (1.005-1.025); UMIC TRIGGER UA YES
[2024-10-01 13:41] LABS: Microalbum/Creatinine Ratio Ur 120.2 ug/mg cr (<30); Total Protein Urine Random 10 mg/dL (<12)
[2024-10-01 14:07] LABS: HBS Num1 0.00 mIU/mL (0-7.99); HBc Num1 0.14 S/CO (0.00-0.79); HBsAGNum1 0.40 S/CO (0.00-0.99); HIV Num 1 0.05 S/CO (0.00-0.99); Hepatitis B Surface Antigen Negative (Negative); ~HepC Num1 0.14 S/CO (0.00-0.79); ~Hepatitis B Surface Antibody NONREACTIVE (Nonreactive); ~Hepatitis C Antibody Nonreactive (Nonreactive)
[2024-10-01 14:08] LABS: Parathyroid Hormone Intact 225.0 pg/mL (8.7-77.1)
[2024-10-01 14:24] LABS: Anion Gap 15 (12-20); Blood Urea Nitrogen 47 mg/dL (9-16); Calcium 9.8 mg/dL (8.4-10.2); Carbon Dioxide 24 mmol/L (22-29); Chloride 104 mmol/L (96-108); Estimated Glomerular Filt Rate 23; Potassium 3.5 mmol/L (3.3-5.1); Sodium 139 mmol/L (135-145)
[2024-10-02 22:17] LABS: Prot Elec - Albumin 4.0 g/dL (3.8-4.8); Prot Elec - Alpha1 0.4 g/dL (0.2-0.3); Prot Elec - Alpha2 1.1 g/dL (0.5-0.9); Prot Elec - Beta 1 0.5 g/dL (0.4-0.6); Prot Elec - Beta 2 0.7 g/dL (0.2-0.5); Prot Elec - Gamma 2.5 g/dL (0.8-1.7); Prot Elec - Total Protein 9.1 g/dL (6.1-8.1)
[2024-10-06 10:14] LABS: PEU-Protein Creat Ratio Rand 0.306 (0.024-0.184); PEU-Rand. Prot/Creat Ratio 306 mg/g creat (24-184); PEU-Random Ur. Gamma Globulin 0 %; PEU-Random Urine A1 Globulin 0 %; PEU-Random Urine A2 Globulin 0 %; PEU-Random Urine Albumin 100 %; PEU-Random Urine Beta Globulin 0 %; PEU-Random Urine Creatinine 36 mg/dL (20-275); PEU-Random Urine Protein 11 mg/dL (5-24)
[2024-10-06 13:13] LABS: Proteinase 3 PR3 Antibodies <1.0 AI
[2024-10-06 16:04] LABS: Kappa, Serum 605 mg/dL (176-443); Kappa/Lambda Ratio, Serum 1.83 (1.29-2.55); Lambda, Serum 330 mg/dL (91-240)
[2024-10-07 07:13] LABS: Anti Nuclear Antibody Pattern Nuclear, Speckled; Anti Nuclear Antibody Screen POSITIVE (NEGATIVE); Anti Nuclear Antibody Titer 1:40 titer
[2024-10-08 04:04] LABS: Phospholipase A2 IgG ELISA <4 RU/mL; Phospholipase A2 IgG IFA NEGATIVE (NEGATIVE)
--- OUTSIDE RECORDS SUMMARY | 2024-11-24 20:00 | XMS_ITS | Clinical Summary ---
Author Organization Unknown Care Team Providers Care Side Boss Name Role Phone DENNIS KO, EMILY Unavailable Unavailable MAUDE ADRIAN, MANJIT Unavailable Unavailable Payers Payer Name Policy Type Policy Number Effective Date Expira tion Date [place]IC[place] [id number] Problems Condition Name Condition Details Condition Category Status Onset Date Resolution Date Last Treatment Date Treating Clinician Comments CODING TO BE COMPLETED AFTER CLINICAL DOCUMENTATIO N REVIEW Active 09-19 00:00: 00 Allergies, Adverse Reactions, Alerts Allergy Name Allergy Type Status Severity Reaction(s) Onset Date Inactive Date Treating Clinician Comments CODEINE Propensity to adverse reactions Active 09-27 22:39: 56 CORTISONE CONTRAST DYE Propensity to adverse reactions Active 09-27 22:40: 32 HYDROMORPHON E Propensity to adverse reactions Active 09-27 22:40: 53 METHYLPREDNI SOLONE Propensity to adverse reactions Active 09-27 22:41: 16 MORPHINE Propensity to adverse reactions Active 09-27 22:41: 44 PENICILLIN Propensity to adverse reactions Active 09-27 22:41: 55 SULFA (SULFONAMIDE ANTIBIOTICS) Propensity to adverse reactions Active 09-27 22:42: 58 Vital Signs Vital Name Observation Time Observation Value Commen ts Temperature 2024-09-27 22:44:00.000 98.2 [degF] BMI (%) 2024-09-27 22:44:00.000 29 kg/m2 Height 2024-09-27 22:44:00.000 64 [in_us] Pulse 2024-09-27 22:44:00.000 72 /min O2 Saturation (%) 2024-09-27 22:44:00.000 96 % Respirations 2024-09-27 22:44:00.000 20 /min Weight (lbs) 2024-09-27 22:44:00.000 172 [lb_av] Systolic Blood Pressure 2024-09-27 22:44:00.000 130 mm [Hg] Diastolic Blood Pressure 2024-09-27 22:44:00.000 66 mm [Hg] Plan of Treatment Planned Activity Planned Date Details Comments Future Scheduled Test SKILLED NU RSE TO EVALUATE PATIENT, IDENTIFY PRIMARY AND CO-MORBID CONDITIONS CODED PER CODING GUIDELINES, AND DEVELOP PATIENT SPECIFIC PLAN OF CARE THAT INCLUDES PATIENT GOAL FOR HOME HEALTH. [code = SKILLED NURSE TO EVALUATE PATIENT, IDENTIFY PRIMARY AND CO-MORBID CONDITIONS CODED PER CODING GUIDELINES, AND DEVELOP PATIENT SPECIFIC PLAN OF CARE THAT INCLUDES PATIENT GOAL FOR HOME HEALTH.] Future Scheduled Test SKILLED NU RSE TO REVIEW PATIENT MEDICATIONS (PRESCRIPTION/OTC). INSTRUCT PATIENT/CAREGIVER ON ALL MEDICATIONS INCLUDING PURPOSE, WHEN TO TAKE, IMPORTANCE OF MEDICATION ADHERENCE, MONITORING OF EFFECTIVENESS, ADVERSE DRUG REACTIONS, POSSIBLE SIDE EFFECTS, AND WHEN TO NOTIFY AGENCY OR PHYSICIAN/PROVIDER OF ANY CONCERNS. [code = SKILLED NURSE TO REVIEW PATIENT MEDICATIONS (PRESCRIPTION/OTC). INSTRUCT PATIENT/CAREGIVER ON ALL MEDICATIONS INCLUDING PURPOSE, WHEN TO TAKE, IMPORTANCE OF MEDICATION ADHERENCE, MONITORING OF EFFECTIVENESS, ADVERSE DRUG REACTIONS, POSSIBLE SIDE EFFECTS, AND WHEN TO NOTIFY AGENCY OR PHYSICIAN/PROVIDER OF ANY CONCERNS.] Future Scheduled Test PATIENT CHO S A RISK OF HOSPITALIZATION AND ED USE. SKILLED NURSE TO ESTABLISH SUPPORT MEASURES TO MINIMIZE RISK OF HOSPITALIZATION AND ED USE, AND INSTRUCT PATIENT/CAREGIVER ON METHODS TO REDUCE AVOIDABLE HOSPITALIZATION AND ED USE. [code = PATIENT HAS A RISK OF HOSPITALIZATION AND ED USE. SKILLED NURSE TO ESTABLISH SUPPORT MEASURES TO MINIMIZE RISK OF HOSPITALIZATION AND ED USE, AND INSTRUCT PATIENT/CAREGIVER ON METHODS TO REDUCE AVOIDABLE HOSPITALIZATION AND ED USE.] Future Scheduled Test SKILLED NU RSE TO PROVIDE INSTRUCTION TO PATIENT/CAREGIVER RELATED TO DISCHARGE PLANNING. [code = SKILLED NURSE TO PROVIDE INSTRUCTION TO PATIENT/CAREGIVER RELATED TO DISCHARGE PLANNING.] Future Scheduled Test SKILLED NU RSE TO PERFORM ENVIRONMENTAL SAFETY RISK ASSESSMENT AND FALL RISK ASSESSMENT AND PROVIDE INSTRUCTION TO IMPLEMENT ENVIRONMENTAL SAFETY AND FALL PREVENTION STRATEGIES THROUGHOUT THE CERTIFICATION PERIOD. SKILLED NURSE WILL MAINTAIN SITUATIONAL AWARENESS AND WILL NOTIFY CLINICAL CASE MANAGEMENT RN AND PHYSICIAN/PROVIDER WITH ANY CHANGE IN CONDITION. [code = SKILLED NURSE TO PERFORM ENVIRONMENTAL SAFETY RISK ASSESSMENT AND FALL RISK ASSESSMENT AND PROVIDE INSTRUCTION TO IMPLEMENT ENVIRONMENTAL SAFETY AND FALL PREVENTION STRATEGIES THROUGHOUT THE CERTIFICATION PERIOD. SKILLED NURSE WILL MAINTAIN SITUATIONAL AWARENESS AND WILL NOTIFY CLINICAL CASE MANAGEMENT RN AND PHYSICIAN/PROVIDER WITH ANY CHANGE IN CONDITION.] Future Scheduled Test SKILLED NU RSE FOR OBSERVATION AND ASSESSMENT OF PATIENTS PAIN LEVEL AND EFFECTIVENESS OF PAIN MANAGEMENT REGIMEN. SKILLED NURSE TO INSTRUCT PATIENT/CAREGIVER REGARDING PHARMACOLOGIC AND NON-PHARMACOLOGIC PAIN CONTROL MEASURES. SKILLED NURSE TO REPORT TO PHYSICIAN IF PAIN LEVEL IS OUTSIDE OF ESTABLISHED PARAMETERS. [code = SKILLED NURSE FOR OBSERVATION AND ASSESSMENT OF PATIENTS PAIN LEVEL AND EFFECTIVENESS OF PAIN MANAGEMENT REGIMEN. SKILLED NURSE TO INSTRUCT PATIENT/CAREGIVER REGARDING PHARMACOLOGIC AND NON-PHARMACOLOGIC PAIN CONTROL MEASURES. SKILLED NURSE TO REPORT TO PHYSICIAN IF PAIN LEVEL IS OUTSIDE OF ESTABLISHED PARAMETERS.] Future Scheduled Test SKILLED NU RSE TO ASSESS PATIENT'S SKIN INTEGRITY AND INSTRUCT PATIENT/CAREGIVER ON MEASURES TO PREVENT PRESSURE ULCERS. [code = SKILLED NURSE TO ASSESS PATIENT'S SKIN INTEGRITY AND INSTRUCT PATIENT/CAREGIVER ON MEASURES TO PREVENT PRESSURE ULCERS.] Future Scheduled Test SKILLED NU RSE TO INSTRUCT/REINFORCE MEASURES TO PREVENT BARRIERS TO CARE. [code = SKILLED NURSE TO INSTRUCT/REINFORCE MEASURES TO PREVENT BARRIERS TO CARE.] Future Scheduled Test SKILLED NU RSE FOR O/A OF RESPIRATORY SYSTEM TO IDENTIFY CHANGES ASSOCIATED WITH EXACERBATION AND TO PROVIDE SKILLED TEACHING ON MANAGEMENT OF PULMONARY EDEMA RESPIRATORY DISEASE PROCESS. [code = SKILLED NURSE FOR O/A OF RESPIRATORY SYSTEM TO IDENTIFY CHANGES ASSOCIATED WITH EXACERBATION AND TO PROVIDE SKILLED TEACHING ON MANAGEMENT OF PULMONARY EDEMA RESPIRATORY DISEASE PROCESS.] Future Scheduled Test OXYGEN VIA NASAL CANNULA) @ 2 LITERS /CONTINUOUS. SKILLED NURSE FOR O/A AND SKILLED TEACHING OF SAFE OXYGEN USE IN THE HOME. [code = OXYGEN VIA NASAL CANNULA) @ 2 LITERS /CONTINUOUS. SKILLED NURSE FOR O/A AND SKILLED TEACHING OF SAFE OXYGEN USE IN THE HOME.] Future Scheduled Test SKILLED NU RSE TO PROVIDE TEACHING ON SIGNS AND SYMPTOMS AND MANAGEMENT OF HYPERTENSION. [code = SKILLED NURSE TO PROVIDE TEACHING ON SIGNS AND SYMPTOMS AND MANAGEMENT OF HYPERTENSION.] Future Scheduled Test SKILLED NU RSE FOR O/A, TEACHING AND SELF-MANAGEMENT RELATED TO HEART FAILURE. INSTRUCT PATIENT/CAREGIVER ON SIGNS AND SYMPTOMS OF EXACERBATION TO REPORT AND IMPORTANCE OF OBTAINING AND RECORDING DAILY WEIGHT AND/OR MEASUREMENTS. SN OR TRAINED PATIENT/CAREGIVER TO OBTAIN WEIGHT DAILY AND WEIGHT GAIN OF 2 LBS OVERNIGHT OR 5 LBS IN 1 WEEK TO BE REPORTED TO PHYSICIAN/PROVIDER. [code = SKILLED NURSE FOR O/A, TEACHING AND SELF-MANAGEMENT RELATED TO HEART FAILURE. INSTRUCT PATIENT/CAREGIVER ON SIGNS AND SYMPTOMS OF EXACERBATION TO REPORT AND IMPORTANCE OF OBTAINING AND RECORDING DAILY WEIGHT AND/OR MEASUREMENTS. SN OR TRAINED PATIENT/CAREGIVER TO OBTAIN WEIGHT DAILY AND WEIGHT GAIN OF 2 LBS OVERNIGHT OR 5 LBS IN 1 WEEK TO BE REPORTED TO PHYSICIAN/PROVIDER. ] Future Scheduled Test SKILLED NU RSE FOR O/A, TEACHING RELATED TO CONSTIPATION GASTROINTESTINAL DISEASE) FOR EARLY IDENTIFICATION OF EXACERBATION OF DISEASE PROCESS. [code = SKILLED NURSE FOR O/A, TEACHING RELATED TO CONSTIPATION GASTROINTESTINAL DISEASE) FOR EARLY IDENTIFICATION OF EXACERBATION OF DISEASE PROCESS.] Future Scheduled Test SKILLED NU RSE FOR O/A AND TEACHING OF DIABETIC MANAGEMENT INCLUDING BLOOD SUGAR MONITORING/USE OF GLUCOMETER, DIABETIC DIET, LOWER EXTREMITY SKIN INSPECTION, PROPER SKIN/FOOT CARE, AND SIGNS AND SYMPTOMS HYPO/HYPERGLYCEMIA TO REPORT. [code = SKILLED NURSE FOR O/A AND TEACHING OF DIABETIC MANAGEMENT INCLUDING BLOOD SUGAR MONITORING/USE OF GLUCOMETER, DIABETIC DIET, LOWER EXTREMITY SKIN INSPECTION, PROPER SKIN/FOOT CARE, AND SIGNS AND SYMPTOMS HYPO/HYPERGLYCEMIA TO REPORT.] Future Scheduled Test PHYSICAL T HERAPIST TO EVALUATE PATIENT FOR STRENGTH AND GAIT TRAINING [code = PHYSICAL THERAPIST TO EVALUATE PATIENT FOR STRENGTH AND GAIT TRAINING ] Future Scheduled Test MEDICAL SO CIAL WORKER TO EVALUATE PATIENT FOR ASSIST WITH INSURANCE CHANGES IN MEDICATION COST ISSUES [code = STAFF SOFTWARE ENGINEER TO EVALUATE PATIENT FOR ASSIST WITH INSURANCE CHANGES IN MEDICATION COST ISSUES] Goal Patient Goal - FEEL BETTER Goal Provider Goal - A PLAN OF CARE WILL BE ESTABLISHED THAT MEETS PATIENT'S LONG TERM NEEDS AND INCLUDES PATIENT GOAL FOR HOME HEALTH. Goal Provider Goal - PATIENT/CAREGIVER WILL VERBALIZE UNDERSTANDING OF EDUCATION PROVIDED ON MEDICATIONS BY THE END OF THE CERTIFICATION PERIOD. Goal Provider Goal - PATIENT WILL HAVE SUPPORT MEASURES ESTABLISHED TO PREVENT HOSPITALIZATION AND ED USE AND PATIENT/CAREGIVER WILL VERBALIZE/DEMONSTRATE METHODS TO REDUCE AVOIDABLE HOSPITALIZATION AND ED USE BY END OF EPISODE. Goal Provider Goal - PATIENT/CAREGIVER WILL VERBALIZE UNDERSTANDING OF DISCHARGE PLANNING INSTRUCTIONS BY DATE OF DISCHARGE. Goal Provider Goal - PATIENT/CAREGIVER WILL VERBALIZE/DEMONSTRATE EFFECTIVE ENVIRONMENTAL SAFETY AND FALL PREVENTION STRATEGIES, WILL REMAIN SAFE IN THE COMMUNITY, AND WILL BE FREE OF DANGER TO SELF AND OTHERS THROUGHOUT THE CERTIFICATION PERIOD. Goal Provider Goal - PATIENT/CAREGIVER WILL DEMONSTRATE UNDERSTANDING OF PHARMACOLOGIC AND NONPHARMACOLOGIC PAIN CONTROL MEASURES AND PATIENT WILL HAVE IMPROVEMENT IN PAIN INTERFERING WITH ACTIVITY EVIDENCED BY PAIN AT A LEVEL THAT IS ACCEPTABLE TO THE PATIENT AND PAIN LEVEL WITHIN ESTABLISHED PARAMETERS BY END OF CERTIFICATION PERIOD. Goal Provider Goal - PATIENT/CAREGIVER WILL VERBALIZE UNDERSTANDING OF PRESSURE ULCER PREVENTION BY END OF THE EPISODE. Goal Provider Goal - PATIENT / CAREGIVER WILL VERBALIZE UNDERSTANDING OF BARRIERS PREVENTING PROPER CARE AND DEMONSTRATE MEASURES TO ELIMINATE THOSE BARRIERS DURING THIS EPISODE. Goal Provider Goal - PATIENT/CAREGIVER WILL VERBALIZE/DEMONSTRATE MANAGEMENT OF RESPIRATORY DISEASE PROCESS. CHANGES IN RESPIRATORY STATUS WILL BE IDENTIFIED AND REPORTED TO PHYSICIAN FOR PROMPT INTERVENTION THROUGHOUT THE CERTIFICATION PERIOD. Goal Provider Goal - PATIENT/CAREGIVER WILL VERBALIZE/DEMONSTRATE UNDERSTANDING OF SAFE OXYGEN USE IN THE HOME THROUGHOUT THE EPISODE. Goal Provider Goal - PATIENT/CAREGIVER WILL VERBALIZE SIGNS AND SYMPTOMS OF HYPERTENSION AND WILL BE ABLE TO DEMONSTRATE ABILITY TO MANAGE EXACERBATION BY END OF THE EPISODE. Goal Provider Goal - PATIENT/CAREGIVER WILL VERBALIZE/DEMONSTRATE KNOWLEDGE AND MANAGEMENT OF HEART FAILURE DISEASE PROCESS BY END OF EPISODE. Goal Provider Goal - EXACERBATIONS OF GASTROINTESTINAL DISEASE WILL BE PROMPTLY IDENTIFIED AND INTERVENTIONS IMPLEMENTED TO MINIMIZE RISKS TO PATIENT BY END OF EPISODE. Goal Provider Goal - PATIENT/CAREGIVER WILL VERBALIZE/DEMONSTRATE KNOWLEDGE OF DIABETIC MANAGEMENT. CHANGES IN DIABETIC STATUS WILL BE IDENTIFIED AND REPORTED TO PHYSICIAN FOR PROMPT INTERVENTION THROUGHOUT THE CERTIFICATION PERIOD. Goal Provider Goal - A PHYSICAL THERAPY EVALUATION TO BE COMPLETED WITH RECOMMENDATIONS AND/OR WRITTEN PLAN OF TREATMENT ESTABLISHED FOR PHYSICIANS SIGNATURE. Goal Provider Goal - STAFF SOFTWARE ENGINEER TO COMPLETE EVALUATION TO ADDRESS THE PATIENTS SOCIAL AND EMOTIONAL FACTORS AND/OR WRITTEN PLAN OF TREATMENT ESTABLISHED FOR THE PHYSICIAN'S SIGNATURE. Progress Notes Progress Notes <paragraph>[Visit Date: 2024 by ANDIE NEWMAN RN]:</paragraph><paragraph>SEE C NOTE</paragraph> Encounters Start Date/Time End Date/Time Encounter Type Admission Type Attending [facility] Facility Care Department Encounter ID Discharge Date Discharge Status Discharge Condition Discharge Reason Percent Goals Met 2024-09-27 00:00:00 2024-11-25 00:00:00 Outpatient [facility] [id number] 80.00
== END 2024-10-01 08:48 | disposition home or self-care (01) ==
LOC: HO.HKASLDS 08:47
PROVIDERS: PCP Family Medicine; Visit Provider Internal Medicine Critical Care Medicine
DX: I12.9 Hypertensive chronic kidney disease with stage 1 through stage 4 chronic kidney disease, or unspecified chronic kidney disease (principal); E11.22 Type 2 diabetes mellitus with diabetic chronic kidney disease; N18.31 Chronic kidney disease, stage 3a; N17.9 Acute kidney failure, unspecified; Z79.899 Other long term (current) drug therapy; Z79.4 Long term (current) use of insulin
CPT/HCPCS: 80048; 81001; 81003; 82043; 82306; 82570; 83520; 83883; 83970; 84100; 84156; 84165; 84166; 86021; 86038; 86039; 86160; 86255; 86704; 86706; 86803; 87340; 87389; 99202

== ENCOUNTER 2024-10-01 08:47 | Outpatient (AMB) | payer MEDICARE, MEDICAID, SELFPAY ==
--- OUTSIDE RECORDS SUMMARY | 2024-10-01 09:08 | XMS_ITS | Clinical Summary ---
Author Organization 175 [facility] Address [address] [place] [address] Phone Care Team Providers Care Flooring Professional Name Role Phone Renato Nunn MD Primary Care Provider [phone] Allergies Active Allergy Reactions Criticality Noted Date [...] mouth 2 (two) times a day. Active loratadine (CLARITIN) 10 mg tablet Take [...] mouth 1 (one) time each day. Active linaCLOtide (Linzess) 290 mcg capsule Take 1 capsule (290 mcg total) by mouth 1 (one) time each day before breakfast. 90 each 1 08/18/2024 Active Active Problems No known active problems Encounters Date Type Department Care Team Description 08/18/2024 Telephone Gastroenterology - [place] [facility] 175 [facility] [address] [place] [address] Rachael Brizuela NP Med Refill 08/13/2024 8:07 AM EDT - 08/13/2024 11:59 PM EDT Hospital Encounter [facility] [address] [place] [address] Oropharyngeal dysphagia Discharge Disposition: Home or Self Care from Last 3 Months Immunizations Name Administration Dates Next Due Influenza, Unspecified 01/22/2022 Social History Tobacco Use Types Packs/Day Years Used Date Smoking Tobacco: Never Assessed Comments Unknown Sex and Gender Information Value Date Recorded Sex Assigned at Female 06/08/2024 10:45 AM EDT Legal Sex Female 5:12 PM EST Gender Identity Female 06/08/2024 10:45 AM EDT Sexual Orientation Straight 06/08/2024 10 :45 AM EDT Obstetrics History Last Filed Vital Signs Vital Sign Reading Time Taken Comments Blood Pressure 115/64 06/08/2024 8:58 AM EDT Pulse 74 06/08/2024 8:58 AM EDT Temperature - - Respiratory Rate - - Oxygen Saturation 96% 06/08/2024 8:58 AM EDT Inhaled Oxygen Concentration - - Weight 81.2 kg (179 lb) 06/08/2024 8:58 AM EDT Height 157.5 cm (5' 2 ) 06/08/2024 8:58 AM EDT Body Mass Index 32.74 06/08/2024 8:58 AM EDT Plan of Treatment Health Maintenance Due Date Last Done Comments Diabetes: Annual GFR (Glomerular Filtration Rate) 1960 Diabetes: Annual Foot Exam 02/10/1968 Diabetes: Annual Retina Eye Exam 02/10/1968 Hepatitis A Vaccines (1 of 2 - Risk 2-dose series) 1977 Zoster Vaccines (1 of 2) 02/10/2008 Pneumococcal Vaccine: 50+ Years (2 of 2 - PCV) 08/14/2011 08/13/2010 Hepatitis B Vaccines (2 of 3 - Risk 3-dose series) 07/29/2012 07/01/2012 RSV Immunization Adult Patients (1 - Risk 60-74 years 1-dose series) 2018 Breast Cancer Screening 03/06/2020 03/06/2018 DTaP,Tdap,and Td Vaccines (2 - Td or Tdap) 08/06/2021 08/07/2011 COVID-19 Vaccine ( - season) 2023 Cholesterol Screening (Lipid Panel) 12/03/2023 Colorectal Cancer Screening: Colonoscopy 12/03/2023 Falls Risk Assessment 12/03/2023 Hepatitis C Screening 12/03/2023 Medicare Annual Wellness Visit 12/03/2023 Osteoporosis Screening (Bone Density Screening) 12/03/2023 Social Influencers of Health Screening 12/03/2023 Depression Screening 02/26/2024 Diabetes: Annual Urine Albumin-Creatinine Ratio (uACR) 06/08/2024 Diabetes: Blood Sugar Control Test (HGBA1C) 06/08/2024 Hypertension/CHF/CAD Annual BMP Blood Test 06/08/2024 Influenza Vaccine (#1) 2024 4, 01/22/2022, 12/07/2019, Additional history exists HIB Vaccines Aged Out No longer eligi [...] age to complete this topic Meningococcal B Vaccine Aged Out No l onger eligible based on patient's age to complete this topic RSV Immunization Patients Under 20 months Aged Out No longer eligible based on patient's age to complete this topic Varicella Vaccines Aged Out No longer eligible based on patient's age to complete this topic Procedures Procedure Name Priority Date/Time Associated Diagnosis Comments XR ESOPHAGRAM Routine 08/13/2024 8:32 AM EDT Oropharyngeal dysphagia BHARGAVI SCREENING DIGITAL Routine 03/06/2018 10:32 AM EST Encounter for screening mammogram for malignant neoplasm of breast from Last 3 Months or Most Recently Relevant to Health Maintenance Results * XR Esophagram (08/13/2024 8:32 AM EDT) Anatomical Region Laterality Modality Head and Neck Radiographic Rona ging 08/13/2024 9:07 AM EDT Impressions 08/13/2024 12:08 PM EDT 1. Moderate esophageal dysmotility. 2. Tiny flash laryngeal penetration without genevieve aspiration on rapid sequence swallowing of thin barium. -------- FINAL REPORT -------- Dictated By: Lindsay Long Dictated Date: 08/13/2024 09:07 ET Assigned Physician: Yamiin Uribe Reviewed and Electronically Signed By: Yamini Uribe Signed Date: 08/13/2024 12:08 ET Workstation ID: [id number] Transcribed By: Self Edit Transcribed Date: 08/13/2024 09:31 ET Resident/PA/FOOD SERVER: Lindsay Long Narrative 08/13/2024 12:08 PM EDT FINDINGS: Double contrast esophagram performed. COMPARISON: No prior esophagram imaging. HISTORY: Patient is a 64-year-old female with history of globus sensation, dysphagia. Trial Court Judge radiographs: 1 view chest radiograph demonstrates enlarged cardiac silhouette. Lungs are clear bilaterally. Costophrenic angles are sharp. Mild to moderate bony degenerative changes of the thoracolumbar spine are noted. There are surgical clips in the right upper quadrant, consistent with history of cholecystectomy. There is a linear, tubelike radiopacity in the soft tissues of the right neck which may represent vascular calcification. 1 view soft tissue neck demonstrates no prevertebral soft tissue masses. Airway is widely patent. There are moderate bony degenerative changes of the cervical spine including anterior osteophytes of C3- 5 and loss of cervical lordosis. Effervescent crystals were administered orally. Thick and thin barium were administered orally under fluoroscopic control. Pharyngoesophagram: Rapid sequence imaging of the hypopharynx during swallowing demonstrates prompt initiation of swallowing. There is normal soft palate elevation. There is a tiny amount of laryngeal penetration without genevieve aspiration. There is no residual in the vallecula nor in the piriform sinuses. Thoracic esophagus: There is moderate esophageal dysmotility. Normal distensibility and mucosal pattern without evidence of ulceration, stricture or mass formation. Hiatal hernia: None Reflux: Unable to elicit 13mm Barium pill: Swallowed without difficulty. Prompt passage of pill from the esophagus into the stomach. Air Kerma: 82.57mGy Procedure Note Yamini Uribe MD - 08/13/2024 FINDINGS: Double contrast esophagram performed. COMPARISON: No prior esophagram imaging. HISTORY: Patient is a 64-year-old female with history of globus sensation,dysphagia. Trial Court Judge radiographs: 1 view chest radiograph demonstrates enlarged cardiacsilhouette. Lungs are clear bilaterally. Costophrenic angles are sharp.Mild to moderate bony degenerative changes of the thoracolumbar spine arenoted. There are surgical clips in the right upper quadrant, consistentwith history of cholecystectomy. There is a linear, tubelike radiopacityin the soft tissues of the right neck which may represent vascularcalcification. 1 view soft tissue neck demonstrates no prevertebral softtissue masses. Airway is widely patent. There are moderate bonydegenerative changes of the cervical spine including anterior osteophytesof C3-5 and loss of cervical lordosis. Effervescent crystals were administered orally. Thick and thin barium wereadministered orally under fluoroscopic control. Pharyngoesophagram: Rapid sequence imaging of the hypopharynx duringswallowing demonstrates prompt initiation of swallowing. There is normalsoft palate elevation. There is a tiny amount of laryngeal penetrationwithout genevieve aspiration. There is no residual in the vallecula nor in thepiriform sinuses. Thoracic esophagus: There is moderate esophageal dysmotility. Normaldistensibility and mucosal pattern without evidence of ulceration,stricture or mass formation. Hiatal hernia: None Reflux: Unable to elicit 13mm Barium pill: Swallowed without difficulty. Prompt passage of pillfrom the esophagus into the stomach. Air Kerma: 82.57mGy IMPRESSION: 1. Moderate esophageal dysmotility. 2. Tiny flash laryngeal penetration without genevieve aspiration on rapidsequence swallowing of thin barium. -------- FINAL REPORT -------- Dictated By: Lindsay Long Dictated Date: 08/13/2024 09:07 ET Assigned Physician: Yamini Uribe Reviewed and Electronically Signed By: Yamini Uribe Signed Date: 08/13/2024 12:08 ET Workstation ID: [id number] Transcribed By: Self Edit Transcribed Date: 08/13/2024 09:31 ET Resident/PA/FOOD SERVER: Lindsay Long Rachael Brizuela NP IMG FLUOROSCOPY PROCEDURES Paula l Result * BHARGAVI SCREENING DIGITAL (03/06/2018 10:32 AM EST) Anatomical Region Laterality Modality Mammography 03/06/2018 8:39 AM EST Narrative 03/06/2018 10:32 AM EST [facility] Diagnostic Imaging Department [address] [place] [address] Patient: ALPA DAVID/Age/Sex: 1960 - 58 - F Unit#: [id number] Location/Status: SPDIMAM/REG CLI Mnemonic/Ordering Site: [facility] Ordering Physician: AL GARZA MD Bhargavi [...] target due date for the next mammogram: CPT II 7025F [id number] [id number] Dictating Physician: SIDRA GUEVARA MD Electronically Signed by: SIDRA GUEVARA MD Dic Date/Time: 03/06/18 1029 Sign date/Time: 03/06/18 1032 Procedure Note Sidra Guevara MD - 02/14/2022 [facility] Diagnostic Imaging Department [address] [place] [address] Patient: ALPA DAVID/Age/Sex: 1960 - 58 - F Unit#: [id number] [facility]Ordering Site: [facility] Ordering Physician: AL GARZA MD Bhargavi Screening Digital - 03/06/18 [...] for the next mammogram: CPT II 7025F [id number] Dictating Physician: SIDRA GUEVARA MD Electronically Signed by: SIDRA GUEVARA MD Dic Date/Time: 03/06/18 1029 Sign date/Time: 03/06/18 1032 Al Garza MD IMG BI PROCEDURES Final R esult from Last 3 Months or Most Recently Relevant to Health Maintenance Insurance MEDICAID - [place] MEDICARE Care Teams Flooring Professional Relationship Specialty Start Date End Date Renato Nunn MD [address] [place] [phone] PCP - General 07/30/23
--- OUTSIDE RECORDS SUMMARY | 2024-10-01 09:08 | XMS_ITS | Clinical Summary ---
Author Organization [facility], Address [address] [place] [address] [place] [address] Phone Care Team Providers Care Premium Representative Name Role Phone Renato Nunn MD Primary Care Provider [phone] Allergies Active Allergy Reactions Criticality Noted Date [...] Hemoglobin A1C 11/09/2020 08/09/2020 Influenza Vaccine (#1) 2024 2, 12/07/2019, 02/11/2019, Additional history exists Pneumococcal Vaccine: [...] 9.9 8.7 - 10.7 mg/dL eGFR Non-Afr Mongolian 50 eGFR 58 Hemoglobin A1C 11.4(A) 4.0 - 6.0 08/09/2020 us Historical Provider LAB BLOOD ORDERABLES Paula l Result from Last 3 Months or Most Recently Relevant to Health Maintenance Insurance Medicare Medicaid [place] [address] [place] [id number] Medicare Medicaid [place] [address] [place] [address] Care Teams Premium Representative Relationship Specialty Start Date End Date Renato Nunn MD [id number] PCP - General 03/07/20
--- NOTE | 2024-10-01 09:09 | HO.NEPHOV ---
Vital Signs 10/01/24 09:13 Height 5 ft 2 in Weight 170 lb 6 oz BMI 31.2 BP 124/50 L Blood Pressure Location Lt brachial Position Sitting Pulse 64 Pulse Source Pulse Oximeter Pulse Oximetry (%) 97 Oxygen Delivery Method Room Air Intake Visit Reasons: Dr Tesfaye pt- [facility] [place] [facility] HFU-Conf Barn And Property Manager Required: Yes Barn And Property Manager Language: Receiving Associate Services: Barn And Property Manager Present Barn And Property Manager Name: Brad [id number] Information Interpreted: clinical only Accompanied by: Daughter Allergies codeine Allergy (Verified 10/01/24 09:13) tachycardia cortisone Allergy (Verified 10/01/24 09:13) tachycardia hydromorphone Allergy (Verified 10/01/24 09:13) swelling, Short of Breath latex Allergy (Verified 10/01/24 09:13) Unknown morphine Allergy (Verified 10/01/24 09:13) Hallucinations Penicillins Allergy (Verified 10/01/24 09:13) Swelling Sulfa (Sulfonamide Antibiotics) Allergy (Verified 10/01/24 09:13) Swelling HPI Comments Details: 64-year-old lady with past medical history of CKD, hypertension, diabetes mellitus, heart failure with preserved ejection fraction, CHF, FLAVIO with poor compliance was recently admitted to [facility] and discharged on 09/25/2024 for heart failure exacerbation secondary to poor attendance to the treatment is here for follow-up post discharge care. 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 Congolese interpretor Brad Ruiz Diabetes mellitus: Since , on insulin and Farxiga states blood sugars are on higher side at home. Hypertension: Since past 10 years or so, on amlodipine 10 mg, carvedilol 25 b.i.d., isosorbide mononitrate ER 120, torsemide 40 CAD and CHF, first heart attack in 2008 or 2009 CKD: Baseline creatinine 1.8 - 2.1 as per the hospital notes, 2.59 on 09/25/2024 upon discharge Complaints of itching and back pain She is concerned about hypokalemia with torsemide. [facility] Medical History Obesity STEMI (ST elevation myocardial infarction) Peripheral neuropathy Mediastinal adenopathy Cirrhosis Chronic low back pain Type II diabetes mellitus Elevated cholesterol HTN (hypertension) CKD (chronic kidney disease) stage 3, GFR 30-59 ml/min CAD (coronary artery disease) Sarcoidosis of lung Surgical History History of tubal ligation Hx of endoscopy Hx laparoscopic cholecystectomy Hx of colonoscopy History of heart artery stent Social History Are you a primary child adolescent care to a significant other at home: No Do you presently have visiting nurse or other home services: No Patient Tobacco Use Status: Never used Tobacco Review of Systems Const Details: Const : no body aches, no chills, no excessive, itching generalized + Eyes: no blurry vision and no change in vision ENT: no bleeding gums and no change in voice, no dizziness Card: no chest pain, no shortness of breath, no orthopnea, no PND Resp: no cough, no excessive phlegm production, no SOB GI: no abdominal pain and no nausea, no vomiting : no hematuria, no urinary frequency and no difficulty voiding Musc: no abnormal gait, no bone pain, back pain Neuro: no abnormal movements, no weakness, no dizziness, no abnormal gait and no behavioral changes Psych: no behavioral changes and no change in appetite Endo: no change in body appearance, no cold intolerance, no excessive sweating and no fatigue Physical Exam Vital Signs: Last Vital Signs Pulse 64 10/01/24 09:13 BP 124/50 L 10/01/24 09:13 Pulse Ox 97 10/01/24 09:13 Oxygen Delivery Method Room Air 10/01/24 09:13 BMI result Body Mass Index 31.2 General: not in any acute distress, comfortable, sitting on the chair Nutritional Appearance: well nourished and overweight Eyes: normal position, no icterus Neck: No lymphadenopathy, no thyromegaly Resp: bilateral air entry equal, no added sounds present Cardio: normal S1, S2 heard, no murmur heard, no edema GI: soft, nontender, no guarding, no hepatosplenomegaly : bladder normal to inspection, bladder normal to palpation, no renal angle tenderness Skin: no rashes or lesions noted and elasticity normal Neuro: oriented to person, oriented to place, oriented to time and moves all extremities Results Reviewed Nephrology Results: Sodium, (135-145) 139 mmol/L 04/07/24 Potassium, (3.3-5.1) 3.6 mmol/L 04/07/24 Chloride, (96-108) 112 mmol/L H 04/07/24 Carbon Dioxide, (22-29) 20 mmol/L L 04/07/24 BUN, (9-16) 24 mg/dL H 04/07/24 Creatinine, (0.5-1.4) 1.42 mg/dL H 04/07/24 Calcium, (8.4-10.2) 9.2 mg/dL 04/07/24 Urine Creatinine 40.27 mg/dL 04/07/24 Protein/Creatinin Ratio, (<0.2) 1.49 H 04/07/24 Assessment & Plan Assessment & Plan (1) HTN (hypertension): Code(s): I10 - Essential (primary) hypertension Category: Medical Qualifiers: Hypertension type: primary hypertension Qualified Code(s): I10 - Essential (primary) hypertension (2) CKD stage 3a, GFR 45-59 ml/min: Code(s): N18.31 - Chronic kidney disease, stage 3a Category: Medical (3) BHAVNA (acute kidney injury): Code(s): N17.9 - Acute kidney failure, unspecified Category: Medical (4) Diabetes mellitus: Code(s): E11.9 - Type 2 diabetes mellitus without complications Category: Medical Plan Chronic kidney disease stage III/IV A3 : Possibly secondary to diabetic kidney disease, we like to rule out other etiologies - no family history of CKD, no history of renal stones in the past, NSAID use. - baseline creatinine around 1.8-2.1, possibly has acute on chronic kidney injury most recent creatinine 2.59 on 09/25 2024 - urine microalbumin creatinine ratio: UPCR: 1.49 grams/gram - will get urinalysis - no imaging in the system - avoid nephrotoxic medications not limited to NSAIDs, contrast etc. - importance of diet, weight loss, adequate blood pressure control, stop smoking well explained to patient - will get hepatitis panel, HIV, SHANE, ANCA, complements, SPEP, UPEP, serum free light chains, PLA2R - lisinopril was taken off for unknown reasons. Will check with the labs and if creatinine is stable or better will change amlodipine to losartan to decrease proteinuria. - continue Farxiga for renal protection. Hypertension: - target blood pressures less than 130/90 mm Hg - compliance: - continue on amlodipine 10 mg, carvedilol 25 b.i.d., isosorbide mononitrate ER 120, torsemide 40 This note is constructed using voice recognition software. While every effort has been made to ensure accuracy passenger train braker errors may have been included. Total time spent in the clinic is about 40 minutes, 10 minutes on chart review, review of data, 20 minutes on encounter, physical examination, counseling, answering all the questions, 10 minutes on documentation. Orders: Orders Basic Metabolic Panel Today E11.9 - Type 2 diabetes mellitus without complications, I10 - Essential (primary) hypertension, N17.9 - Acute kidney failure, unspecified, N18.31 - Chronic kidney disease, stage 3a UA and rflx microscopic Today E11.9 - Type 2 diabetes mellitus without complications, I10 - Essential (primary) hypertension, N17.9 - Acute kidney failure, unspecified, N18.31 - Chronic kidney disease, stage 3a Parathyroid Hormone Intact Today E11.9 - Type 2 diabetes mellitus without complications, I10 - Essential (primary) hypertension, N17.9 - Acute kidney failure, unspecified, N18.31 - Chronic kidney disease, stage 3a ANCA Vasculitides Today E11.9 - Type 2 diabetes mellitus without complications, I10 - Essential (primary) hypertension, N17.9 - Acute kidney failure, unspecified, N18.31 - Chronic kidney disease, stage 3a SHANE Reflex Titer and Pattern Today E11.9 - Type 2 diabetes mellitus without complications, I10 - Essential (primary) hypertension, N17.9 - Acute kidney failure, unspecified, N18.31 - Chronic kidney disease, stage 3a Protein Electrophoresis, Serum Today E11.9 - Type 2 diabetes mellitus without complications, I10 - Essential (primary) hypertension, N17.9 - Acute kidney failure, unspecified, N18.31 - Chronic kidney disease, stage 3a Phospholipase A2 Receptor Pnl Today E11.9 - Type 2 diabetes mellitus without complications, I10 - Essential (primary) hypertension, N17.9 - Acute kidney failure, unspecified, N18.31 - Chronic kidney disease, stage 3a Protein Electrophoresis,Ran Ur Today E11.9 - Type 2 diabetes mellitus without complications, I10 - Essential (primary) hypertension, N17.9 - Acute kidney failure, unspecified, N18.31 - Chronic kidney disease, stage 3a Microalbumin, Random (w Creat) Today E11.9 - Type 2 diabetes mellitus without complications, I10 - Essential (primary) hypertension, N17.9 - Acute kidney failure, unspecified, N18.31 - Chronic kidney disease, stage 3a Total Protein Urine Random Today E11.9 - Type 2 diabetes mellitus without complications, I10 - Essential (primary) hypertension, N17.9 - Acute kidney failure, unspecified, N18.31 - Chronic kidney disease, stage 3a Creatinine Urine Today E11.9 - Type 2 diabetes mellitus without complications, I10 - Essential (primary) hypertension, N17.9 - Acute kidney failure, unspecified, N18.31 - Chronic kidney disease, stage 3a Vitamin D 25-OH Total Today E11.9 - Type 2 diabetes mellitus without complications, I10 - Essential (primary) hypertension, N17.9 - Acute kidney failure, unspecified, N18.31 - Chronic kidney disease, stage 3a Phosphorus Today E11.9 - Type 2 diabetes mellitus without complications, I10 - Essential (primary) hypertension, N17.9 - Acute kidney failure, unspecified, N18.31 - Chronic kidney disease, stage 3a Hepatitis B,C Profile Today E11.9 - Type 2 diabetes mellitus without complications, I10 - Essential (primary) hypertension, N17.9 - Acute kidney failure, unspecified, N18.31 - Chronic kidney disease, stage 3a HIV Ab/Ag Today E11.9 - Type 2 diabetes mellitus without complications, I10 - Essential (primary) hypertension, N17.9 - Acute kidney failure, unspecified, N18.31 - Chronic kidney disease, stage 3a Complement C4 Today E11.9 - Type 2 diabetes mellitus without complications, I10 - Essential (primary) hypertension, N17.9 - Acute kidney failure, unspecified, N18.31 - Chronic kidney disease, stage 3a Complement C3 Today E11.9 - Type 2 diabetes mellitus without complications, I10 - Essential (primary) hypertension, N17.9 - Acute kidney failure, unspecified, N18.31 - Chronic kidney disease, stage 3a [place]/Lambda Light Chain Serum Today E11.9 - Type 2 diabetes mellitus without complications, I10 - Essential (primary) hypertension, N17.9 - Acute kidney failure, unspecified, N18.31 - Chronic kidney disease, stage 3a Coding Level of Care Code New Pt Level 4 (96350) Diagnoses Primary hypertension I10 Hypertension type: primary hypertension CKD stage 3a, GFR 45-59 ml/min N18.31 BHAVNA (acute kidney injury) N17.9 Diabetes mellitus E11.9
[2024-10-01 09:13] VITALS: BP 124/50; PULSE 64; O2SAT 97; BMI 31.2
== END 2024-10-01 09:42 | disposition home or self-care (01) ==
LOC: HO.HKAS 08:48
PROVIDERS: PCP Family Medicine; Visit Provider Internal Medicine Critical Care Medicine
DX: I10 Essential (primary) hypertension (principal); N18.31 Chronic kidney disease, stage 3a; N17.9 Acute kidney failure, unspecified; E11.9 Type 2 diabetes mellitus without complications
CPT/HCPCS: 99204

== ENCOUNTER 2024-11-19 09:48 | Outpatient (REF) | payer OTHER, SELFPAY ==
[2024-11-19 14:15] LABS: Anion Gap 15 (12-20); Blood Urea Nitrogen 39 mg/dL (9-16); Calcium 9.3 mg/dL (8.4-10.2); Carbon Dioxide 24 mmol/L (22-29); Chloride 102 mmol/L (96-108); Estimated Glomerular Filt Rate 26; Potassium 4.1 mmol/L (3.3-5.1); Sodium 137 mmol/L (135-145)
== END 2024-11-19 09:49 | disposition home or self-care (01) ==
LOC: HO.HKASLDS 09:48
PROVIDERS: PCP Family Medicine; Visit Provider Internal Medicine Nephrology
DX: I12.9 Hypertensive chronic kidney disease with stage 1 through stage 4 chronic kidney disease, or unspecified chronic kidney disease (principal); N18.31 Chronic kidney disease, stage 3a; N17.9 Acute kidney failure, unspecified; N25.81 Secondary hyperparathyroidism of renal origin; Z79.899 Other long term (current) drug therapy
CPT/HCPCS: 36415; 80051; 82310; 82565; 84520; 99212

== ENCOUNTER 2024-11-19 09:48 | Outpatient (AMB) | payer MEDICARE, MEDICAID, SELFPAY ==
--- NOTE | 2024-11-19 09:56 | HO.NEPHOV_ITS ---
Vital Signs 11/19/24 09:58 Height 5 ft 2 in Weight 174 lb 4 oz BMI 31.9 BP 126/60 Blood Pressure Location Lt brachial Position Sitting Pulse 74 Pulse Source Pulse Oximeter Pulse Oximetry (%) 98 Oxygen Delivery Method Room Air Intake Visit Reasons: 3m follow up Vocational Nursing Instructor Required: Yes Vocational Nursing Instructor Language: Pageant Director Services: Vocational Nursing Instructor Present Vocational Nursing Instructor Name: Jason [id number] Information Interpreted: clinical only Accompanied by: Self / Same As Patient Allergies codeine Allergy (Verified 11/19/24 09:57) tachycardia cortisone Allergy (Verified 11/19/24 09:57) tachycardia hydromorphone Allergy (Verified 11/19/24 09:57) swelling, Short of Breath latex Allergy (Verified 11/19/24 09:57) Unknown morphine Allergy (Verified 11/19/24 09:57) Hallucinations Penicillins Allergy (Verified 11/19/24 09:57) Swelling Sulfa (Sulfonamide Antibiotics) Allergy (Verified 11/19/24 09:57) Swelling HPI Comments Details: I had the pleasure of seeing Francisca in follow-up for BHAVNA on chronic kidney disease, nephrolithiasis, proteinuria on a backdrop of sarcoidosis. Her CT scan of the chest which was unchanged from prior in terms of pulmonary sarcoid. Pulmonology did not recommend systemic steroids or methotrexate. She likely has pulmonary artery hypertension in the setting of pulmonary sarcoid and heart failure with a preserved ejection fraction. She is currently on torsemide and Farxiga. Her blood sugar is better controlled on current insulin dosages. She did not have any new complaints at the time of this office visit. [facility] Medical History Obesity STEMI (ST elevation myocardial infarction) Peripheral neuropathy Mediastinal adenopathy Cirrhosis Chronic low back pain Type II diabetes mellitus Elevated cholesterol HTN (hypertension) CKD (chronic kidney disease) stage 3, GFR 30-59 ml/min CAD (coronary artery disease) Sarcoidosis of lung Surgical History History of tubal ligation Hx of endoscopy Hx laparoscopic cholecystectomy Hx of colonoscopy History of heart artery stent Social History Are you a primary critical care cns to a significant other at home: No Do you presently have visiting nurse or other home services: No Patient Tobacco Use Status: Never used Tobacco Review of Systems Const All systems reviewed & are unremarkable except as noted in HPI and below Physical Exam Vital Signs: Last Vital Signs Pulse 74 11/19/24 09:58 BP 126/60 11/19/24 09:58 Pulse Ox 98 11/19/24 09:58 Oxygen Delivery Method Room Air 11/19/24 09:58 BMI result Body Mass Index 31.9 Const General: comfortable and no acute distress Orientation/consciousness: patient oriented x3 HEENT Head: Yes normocephalic Mouth: Normal oral and palatal mucosa present Eyes EOM: EOMs intact bilaterally Neck Neck: Yes supple Resp Auscultation: clear to auscultation bilaterally Cardio Jugular venous distension: no JVD Rate: regular rate GI Palpation (GI): Soft to palpation Auscultation: normal bowel sounds General: Yes no CVA tenderness Back/Spine/Pelvis Back: no CVA tenderness Skin General skin exam: no rashes or lesions noted Neuro General: patient oriented x3 and moves all extremities Extrem General: Yes no pedal edema Results Reviewed Nephrology Results: Sodium, (135-145) 139 mmol/L 10/01/24 Potassium, (3.3-5.1) 3.5 mmol/L 10/01/24 Chloride, (96-108) 104 mmol/L 10/01/24 Carbon Dioxide, (22-29) 24 mmol/L 10/01/24 BUN, (9-16) 47 mg/dL H 10/01/24 Creatinine, (0.5-1.4) 2.12 mg/dL H 10/01/24 Calcium, (8.4-10.2) 9.8 mg/dL Δ 10/01/24 Phosphorus, (2.7-4.5) 3.0 mg/dL 10/01/24 PTH Intact, (8.7-77.1) 225.0 pg/mL H 10/01/24 Urine Protein, (Neg-Trace) Negative mg/dL 10/01/24 Urine Creatinine 33.27 mg/dL 10/01/24 Protein/Creatinin Ratio, (24-184) 306 mg/g creat H Assessment & Plan Assessment & Plan (1) BHAVNA (acute kidney injury): Code(s): N17.9 - Acute kidney failure, unspecified Category: Medical (2) CKD stage 3a, GFR 45-59 ml/min: Code(s): N18.31 - Chronic kidney disease, stage 3a Category: Medical (3) HTN (hypertension): Code(s): I10 - Essential (primary) hypertension Category: Medical Qualifiers: Hypertension type: primary hypertension Qualified Code(s): I10 - Essential (primary) hypertension (4) Secondary hyperparathyroidism (of renal origin): Code(s): N25.81 - Secondary hyperparathyroidism of renal origin Category: Medical Plan Her blood pressure is currently at goal. She is not on any immunosuppression for sarcoid. She can continue current medications. Her urine output is good. Her volume status is optimal. She should be on a low-sodium diet. She is on Farxiga. She will benefit by losing some weight. She has history of renal calculi but has not had a problem with it recently. She should maintain fluid restriction. I did not make any medication changes today. Blood work today and in 1 month. Answered all her questions. Follow-up appointment given. Orders: Orders Calcium 1 Month I10 - Essential (primary) hypertension, N17.9 - Acute kidney failure, unspecified, N18.31 - Chronic kidney disease, stage 3a, N25.81 - Secondary hyperparathyroidism of renal origin Electrolytes 1 Month I10 - Essential (primary) hypertension, N17.9 - Acute kidney failure, unspecified, N18.31 - Chronic kidney disease, stage 3a, N25.81 - Secondary hyperparathyroidism of renal origin Creatinine 1 Month I10 - Essential (primary) hypertension, N17.9 - Acute kidney failure, unspecified, N18.31 - Chronic kidney disease, stage 3a, N25.81 - Secondary hyperparathyroidism of renal origin Creatinine Today I10 - Essential (primary) hypertension, N17.9 - Acute kidney failure, unspecified, N18.31 - Chronic kidney disease, stage 3a, N25.81 - Secondary hyperparathyroidism of renal origin Blood Urea Nitrogen 1 Month I10 - Essential (primary) hypertension, N17.9 - Acute kidney failure, unspecified, N18.31 - Chronic kidney disease, stage 3a, N25.81 - Secondary hyperparathyroidism of renal origin Parathyroid Hormone Intact 1 Month I10 - Essential (primary) hypertension, N17.9 - Acute kidney failure, unspecified, N18.31 - Chronic kidney disease, stage 3a, N25.81 - Secondary hyperparathyroidism of renal origin Vitamin D 1,25 dihydroxy 1 Month I10 - Essential (primary) hypertension, N17.9 - Acute kidney failure, unspecified, N18.31 - Chronic kidney disease, stage 3a, N25.81 - Secondary hyperparathyroidism of renal origin Electrolytes Today I10 - Essential (primary) hypertension, N17.9 - Acute kidney failure, unspecified, N18.31 - Chronic kidney disease, stage 3a, N25.81 - Secondary hyperparathyroidism of renal origin Calcium Today I10 - Essential (primary) hypertension, N17.9 - Acute kidney failure, unspecified, N18.31 - Chronic kidney disease, stage 3a, N25.81 - Secondary hyperparathyroidism of renal origin Blood Urea Nitrogen Today I10 - Essential (primary) hypertension, N17.9 - Acute kidney failure, unspecified, N18.31 - Chronic kidney disease, stage 3a, N25.81 - Secondary hyperparathyroidism of renal origin Coding Level of Care Code Est Pt Level 4 (68584) Diagnoses BHAVNA (acute kidney injury) N17.9 CKD stage 3a, GFR 45-59 ml/min N18.31 Primary hypertension I10 Hypertension type: primary hypertension Secondary hyperparathyroidism (of renal origin) N25.81
[2024-11-19 09:58] VITALS: BP 126/60; PULSE 74; O2SAT 98; BMI 31.9
--- OUTSIDE RECORDS SUMMARY | 2024-11-19 11:43 | XMS_ITS | Encounter Summary ---
Author Organization [facility], Address [address] [place] [address] Phone Care Team Providers Care Handle Sewer Name Role Phone Renato Nunn MD Primary Care Provider + [phone] Encounter Details Date Type Department Care Team (Late st Contact Info) Description 12/23/2023 Documentation Only [facility], [address] [place] [address] [place], [place] [address] [place] [phone] Social History Tobacco Use Types Packs/Day Years [...] as of this encounter Plan of Treatment Not on file documented as of this encounter Visit Diagnoses Not on filedocumented in this encounter Care Teams Handle Sewer Relationship Specialty Start Date End Date Renato Nunn MD [facility] [address] [place], [place] PCP - General 03/07/20 documented as of this encounter
--- OUTSIDE RECORDS SUMMARY | 2024-11-19 11:43 | XMS_ITS | Encounter Summary ---
Author Organization [facility], Address [address] [place] [address] Phone Care Team Providers Care Natural Gas Plant Supervisor Name Role Phone Renato Nunn MD Primary Care Provider + [phone] Encounter Details Date Type Department Care Team (Late st Contact Info) Description 12/23/2023 Documentation Only [facility], [address] [place] [address] [place], [place] [address] [place] [phone] Social History Tobacco Use Types Packs/Day Years [...] on filedocumented in this encounter Care Teams Natural Gas Plant Supervisor Relationship Specialty Start Date End Date Renato Nnun MD [facility] [address] [place], [place] PCP - General 03/07/20 documented as of this encounter
--- OUTSIDE RECORDS SUMMARY | 2024-11-19 11:43 | XMS_ITS | Clinical Summary ---
Author Organization [facility], Address [address] [place] [address] [place] [address] Phone Care Team Providers Care Freedom Of Information Officer Name Role Phone Renato Nunn MD Primary Care Provider + [phone] Allergies Active Allergy Reactions Criticality Noted Date [...] 9.9 8.7 - 10.7 mg/dL eGFR Non-Afr Taiwanese 50 eGFR 58 Hemoglobin A1C 11.4(A) 4.0 - 6.0 08/09/2020 us Historical Provider LAB BLOOD ORDERABLES Paula l Result from Last 3 Months or Most Recently Relevant to Health Maintenance Insurance Medicare Medicaid [place] [address] [place] [id number] Medicare Medicaid [place] [address] [place] [address] Care Teams Freedom Of Information Officer Relationship Specialty Start Date End Date Renato Nunn MD [facility] PCP - General 03/07/20
--- OUTSIDE RECORDS SUMMARY | 2024-11-19 11:43 | XMS_ITS | Clinical Summary ---
Author Organization [address] [facility] Address [address] [place] [address] Phone Care Team Providers Care Trampoline Team Coach Name Role Phone Renato Nunn MD Primary Care Provider Allergies Active Allergy Reactions Criticality Noted Date Comments Codeine 12/04/2023 Cortisone 12/04/2023 Hydromorphone 12/04/2023 Latex 12/04/2023 Morphine 12/04/2023 Penicillin G 12/04/2023 Sulfa (Sulfonamide Antibiotics) 10/2023 Medications acetaminophen (TYLENOL) 325 mg tablet Take by mouth every 6 (six) hours if needed for mild pain. Active amLODIPine-ernesto rvastatin (CADUET) 10-10 mg per tablet Take 1 [...] mouth 1 (one) time each day. Active lactose-reduce d food (NUTRITIONAL SUPPLEMENT ORAL) Take by mouth. [...] time each day before breakfast. 90 each 3 5 11/18/19 26 Active linaCLOtide (Linzess) 290 mcg capsule Take 1 capsule (290 mcg total) by mouth 1 (one) time each day before breakfast. 90 each 1 5 11/18/19 25 Discontinued Active Problems No known active problems Immunizations Name Administration Dates Next Due Influenza, [...] (2 - Td or Tdap) 08/06/2021 08/07/2011 Cholesterol Screening (Lipid Panel) 12/03/2023 Colorectal Cancer Screening: Colonoscopy 12/03/2023 Falls Risk Assessment 12/03/2023 Hepatitis C Screening 12/03/2023 Medicare Annual Wellness Visit 12/03/2023 Osteoporosis Screening (Bone Density Screening) 12/03/2023 Social Influencers of Health Screening 12/03/2023 Depression Screening 02/26/2024 Diabetes: Annual Urine Albumin-Creatinine Ratio (uACR) 06/08/2024 Diabetes: Blood Sugar Control Test (HGBA1C) 06/08/2024 Hypertension/CHF/CAD Annual BMP Blood Test 06/08/2024 COVID-19 Vaccine ( season) 2024 Influenza Vaccine (#1) 2024 4, 01/22/2022, 12/07/2019, [...] Procedure Name Priority Date/Time Associated Diagnosis Comments BHARGAVI SCREENING DIGITAL Routine 03/06/2018 10:32 AM EST Encounter for screening mammogram for malignant neoplasm of breast from Last 3 Months or Most Recently Relevant to Health Maintenance Results * BHARGAVI SCREENING DIGITAL (03/06/2018 10:32 AM EST) Anatomical Region Laterality Modality Mammography 03/06/2018 8:39 AM EST Narrative 03/06/2018 10:32 AM EST [facility] Diagnostic Imaging Department [address] [place] [id number] Patient: JOANNALPA./Age/Sex: 1960 - 58 - F Unit#: [id number] Location/Status: [facility] CLI [facility] Order[facility] Physician: AL GARZA MD [facility] Screening Digital - 03/06/18 - 905 INDICATION: [...] for the next mammogram: CPT II 7025F [id number] Dictating Physician: SIDRA SINGH MD Electronically Signed by: SIDRA SINGH MD Dic Date/Time: 03/06/18 1029 Sign date/Time: 03/06/18 1032 Procedure Note Sidra Singh MD - 02/14/2022 [facility] Diagnostic Imaging Department [address] [place] [address] Patient: ALPA DAVID./Age/Sex: 1960 - 58 - F Unit#: [id number] Location/Status: [facility] Mnemonic/Ordering Site: [facility] Ordering Physician: AL GARZA MD Bhargavi [...] for the next mammogram: CPT II 7025F [id number] Dictating Physician: SIDRA SINGH MD Electronically Signed by: SIDRA SINGH MD Dic Date/Time: 03/06/18 1029 Sign date/Time: 03/06/18 1032 Al Garza MD IMG BI PROCEDURES Final R esult from Last 3 Months or Most Recently Relevant to Health Maintenance Insurance MEDICAID - [place] MEDICARE Care Teams Trampoline Team Coach Relationship Specialty Start Date End Date Renato Nunn MD [address] [place] [phone] PCP - General 07/30/23
== END 2024-11-19 10:14 | disposition home or self-care (01) ==
LOC: HO.HKAS 09:48
PROVIDERS: PCP Family Medicine; Visit Provider Internal Medicine Nephrology
DX: N17.9 Acute kidney failure, unspecified (principal); N18.31 Chronic kidney disease, stage 3a; I10 Essential (primary) hypertension; N25.81 Secondary hyperparathyroidism of renal origin
CPT/HCPCS: 99214

== ENCOUNTER 2024-12-22 10:26 | Outpatient (AMB) | payer MEDICARE, MEDICAID, SELFPAY ==
--- OUTSIDE RECORDS SUMMARY | 2024-12-21 10:11 | XMS_ITS | Encounter Summary ---
Author Organization [facility] Address [address] [place] [address] Care Team Providers Care Rn First Assistant Name Role Phone Renato Nunn MD Primary Care Provider [phone] Reason for Referral * Imaging (Routine) - Pending Review Specialty Diagnoses / Procedures Referred By Nicolás ji Referred To Contact Radiology Diagnoses Cyst of pancreas Procedures MR Abdomen wo and w Contrast Rachael Brizuela NP [address] [address] Phone: tel: fax: [facility] Referral ID Status Reason Start Date Expiration Date V isits Requested Visits Authorized [id number] Pending Review 12/27/2023 12/26/2024 1 1 Reason for Visit * Imaging (Routine) - Pending Review Specialty Diagnoses / Procedures Referred By Nicolás ji Referred To Contact Radiology Diagnoses Cyst of pancreas Procedures MR Abdomen wo and w Contrast Rachael Brizuela NP [address] [address] Phone: tel: fax: [facility] Referral ID Status Reason Start Date Expiration Date V isits Requested Visits Authorized [id number] Pending Review 12/27/2023 12/26/2024 1 1 Encounter Details Date Type Department Care Team (Latest Contact Info) Description 12/21/2024 10:11 AM EDT - 12/21/2024 11:59 PM EDT Hospital Encounter Radiology Department - [address] [address] Cyst of pancreas Discharge Disposition: Home or Self Care Social History Tobacco Use Types Packs/Day Years Used Date Smoking Tobacco: Never Assessed Comments Unknown Sex and Gender Information Value Date Recorded Sex Assigned at Female 06/08/2024 10:45 AM EDT Legal Sex Female 5:12 PM EST Gender Identity Female 06/08/2024 10:45 AM EDT Sexual Orientation Straight 06/08/2024 10 :45 AM EDT documented as of this encounter Medications at Time of Discharge acetaminophen (TYLENOL) 325 mg tablet Take by mouth every 6 (six) hours if needed for mild pain. amLODIPine-atorva statin (CADUET) 10-10 mg per tablet Take 1 tablet by mouth 1 (one) time each day. atorvastatin (LIPITOR) 80 mg tablet Take 1 tablet (80 mg total) by mouth at bedtime. empagliflozin (Jardiance) 10 mg tablet Take 1 tablet (10 mg total) by mouth 1 (one) time each day in the morning. gabapentin (NEURONTIN) 100 mg capsule Take 1 capsule (100 mg total) by mouth 3 (three) times a day. insulin zinc extend human rec (INSULIN ZINC EXTENDED HUMAN SUBQ) Inject under the skin. lactose-reduced food (NUTRITIONAL SUPPLEMENT ORAL) Take by mouth. Vitamin D Booster lactulose (CHRONULAC) solution Take 15 mL (10 g total) by mouth 2 (two) times a day. linaCLOtide (Linzess) 290 mcg capsule Take 1 capsule (290 mcg total) by mouth 1 (one) time each day before breakfast. 90 each 3 11/17/2024 11/17/2025 loratadine (CLARITIN) 10 mg tablet Take 1 tablet (10 mg total) by mouth 1 (one) time each day. pantoprazole (PROTONIX) 40 mg EC tablet Take 1 tablet (40 mg total) by mouth 1 (one) time each day before breakfast. Do not crush, chew, or split. polyethylene glycol (MIRALAX) 17 gram packet Take 17 g by mouth 1 (one) time each day. torsemide (DEMADEX) 5 mg tablet Take 1 tablet (5 mg total) by mouth 1 (one) time each day. documented as of this encounter Discharge Disposition Disposition Code Departure Means Destination Home or Self Care documented in this encounter Plan of Treatment Not on file documented as of this encounter Procedures Procedure Name Priority Date/Time Associated Diagnosis Comments MR ABDOMEN WO AND W CONTRAST Routine 12/21/2024 11:43 AM EDT Cyst of pancreas documented in this encounter Results * MR Abdomen wo and w Contrast (12/21/2024 11:43 AM EDT) Anatomical Region Laterality Modality Body Magnetic Resonan ce 12/21/2024 11:4 5 PM EDT Narrative 12/22/2024 12:08 AM EDT MRI of the abdomen without and with intravenous contrast. History follow-up on pancreatic cystic lesions. Examination was performed on 1.5 Larisa magnet without administration of intravenous contrast followed by postcontrast study after administration of 15 mL of DOTAREM. Comparison with previous abdominal studies, most recent from 12/06/2023. Pancreas is atrophic. Again noted are innumerable small cysts throughout the pancreas with the largest cyst in the distal body of the pancreas measuring approximately 8.5 mm, previously 8 mm. There is no direct communication with pancreatic duct. However some of the cysts are in close proximity to the pancreatic duct. No evidence of solid masses or abnormal enhancement. Comment biliary duct is not dilated. There is no intrahepatic biliary ducts dilatation. Again noted is some decreased signal on out of phase images throughout the liver suggestive of hepatic steatosis. It is unchanged. No focal abnormalities were identified within the liver, spleen, adrenal glands or kidneys. There is no evidence of ascites. CONCLUSIONS: No significant interval change in the multiple cystic lesions throughout the pancreas. Follow-up MRI examination is recommended in 1 year. Hepatic steatosis. -------- FINAL REPORT -------- Dictated By: Jenny Herman Dictated Date: 12/21/2024 23:45 ET Assigned Physician: Jenny Herman Reviewed and Electronically Signed By: Jenny Herman Signed Date: 12/22/2024 00:08 ET Workstation ID: [id number] Transcribed By: Self Edit Transcribed Date: 12/21/2024 23:45 ET Procedure Note Jenny Herman MD - 12/22/2024 MRI of the abdomen without and with intravenous contrast. History follow-up on pancreatic cystic lesions. Examination was performed on 1.5 Larisa magnet without administration ofintravenous contrast followed by postcontrast study after administrationof 15 mL of DOTAREM. Comparison with previous abdominal studies, mostrecent from 12/06/2023. Pancreas is atrophic. Again noted are innumerable small cysts throughout the pancreas with thelargest cyst in the distal body of the pancreas measuring approximately8.5 mm, previously 8 mm. There is no direct communication with pancreaticduct. However some of the cysts are in close proximity to the pancreaticduct. No evidence of solid masses or abnormal enhancement. Comment biliary duct is not dilated. There is no intrahepatic biliaryducts dilatation. Again noted is some decreased signal on out of phase images throughout theliver suggestive of hepatic steatosis. It is unchanged. No focalabnormalities were identified within the liver, spleen, adrenal glands orkidneys. There is no evidence of ascites. CONCLUSIONS: No significant interval change in the multiple cystic lesionsthroughout the pancreas. Follow-up MRI examination is recommended in 1year. Hepatic steatosis. -------- FINAL REPORT -------- Dictated By: Jenny Herman Dictated Date: 12/21/2024 23:45 ET Assigned Physician: Jenny Herman Reviewed and Electronically Signed By: Jenny Herman Signed Date: 12/22/2024 00:08 ET Workstation ID: [id number] Transcribed By: Self Edit Transcribed Date: 12/21/2024 23:45 ET Rachael Brizuela NP IMG MRI PROCEDURES Final Result documented in this encounter Visit Diagnoses Diagnosis Cyst of pancreas Cyst and pseudocyst of pancreas documented in this encounter Administered Medications Inactive Administered Medications - up to 3 most recent administrations Medication Order MAR Action Action Date Dose Rate Site gadoterate meglumine (CLARISCAN, DOTAREM) injection 15 mL 15 mL, intravenous, Once in imaging, Starting on 12/21/24 at 1105, For 1 dose Given 12/21/2024 11:42 AM EDT 15 mL documented in this encounter Orders Medications Ordered That J Carlos ht Not Have Been Administered Count Last Ordered Date First Ordered Date gadoterate meglumine (HERO CAN, DOTAREM) injection 15 mL 1 12/21/2024 documented in this encounter Care Teams Rn First Assistant Relationship Specialty Start Date End Date Renato Nunn MD [address] [place] [id number] PCP - General 07/30/23 documented as of this encounter
--- NOTE | 2024-12-22 10:30 | HO.NEPHOV ---
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 Services: Senior Java Ui Developer Offered & Declined ([facility] Senior Java Ui Developer services refused ) Information Interpreted: clinical only Accompanied by: Self / Same As Patient Allergies codeine Allergy (Verified 12/22/24 10:34) tachycardia cortisone Allergy (Verified 12/22/24 10:34) tachycardia hydromorphone Allergy (Verified 12/22/24 10:34) swelling, Short of Breath latex Allergy (Verified 12/22/24 10:34) Unknown morphine Allergy (Verified 12/22/24 10:34) Hallucinations Penicillins Allergy (Verified 12/22/24 10:34) Swelling Sulfa (Sulfonamide Antibiotics) Allergy (Verified 12/22/24 10:34) Swelling HPI Comments Details: I had the pleasure of seeing Francisca in follow-up for chronic kidney disease, nephrolithiasis, proteinuria on a backdrop of sarcoidosis. Her CT scan of the chest which was unchanged from prior in terms of pulmonary sarcoid. Pulmonology did not recommend systemic steroids or methotrexate. She likely has pulmonary artery hypertension in the setting of pulmonary sarcoid and heart failure with a preserved ejection fraction. She is currently on torsemide and Farxiga. Her blood sugar is better controlled on current insulin dosages. She did not have any new complaints at the time of this office visit. [facility] Medical History Obesity STEMI (ST elevation myocardial infarction) Peripheral neuropathy Mediastinal adenopathy Cirrhosis Chronic low back pain Type II diabetes mellitus Elevated cholesterol HTN (hypertension) CKD (chronic kidney disease) stage 3, GFR 30-59 ml/min CAD (coronary artery disease) Sarcoidosis of lung Surgical History History of tubal ligation Hx of endoscopy Hx laparoscopic cholecystectomy Hx of colonoscopy History of heart artery stent Social History Are you a primary manager home healthcare to a significant other at home: No Do you presently have visiting nurse or other home services: No Patient Tobacco Use Status: Never used Tobacco Review of Systems Const All systems reviewed & are unremarkable except as noted in HPI and below Physical Exam Vital Signs: Last Vital Signs Pulse 69 12/22/24 10:34 BP 130/62 12/22/24 10:34 Pulse Ox 97 12/22/24 10:34 Oxygen Delivery Method Room Air 12/22/24 10:34 BMI result Body Mass Index 31.8 Const General: comfortable and no acute distress Orientation/consciousness: patient oriented x3 HEENT Head: Yes normocephalic Mouth: Normal oral and palatal mucosa present Eyes EOM: EOMs intact bilaterally Neck Neck: Yes supple Resp Auscultation: clear to auscultation bilaterally Cardio Jugular venous distension: no JVD Rate: regular rate GI Palpation (GI): Soft to palpation Auscultation: normal bowel sounds General: Yes no CVA tenderness Back/Spine/Pelvis Back: no CVA tenderness Skin General skin exam: no rashes or lesions noted Neuro General: patient oriented x3 and moves all extremities Extrem General: Yes no pedal edema Results Reviewed Nephrology Results: Sodium, (135-145) 137 mmol/L 11/19/24 Potassium, (3.3-5.1) 4.1 mmol/L 11/19/24 Chloride, (96-108) 102 mmol/L 11/19/24 Carbon Dioxide, (22-29) 24 mmol/L 11/19/24 BUN, (9-16) 39 mg/dL H 11/19/24 Creatinine, (0.5-1.4) 1.90 mg/dL H 11/19/24 Calcium, (8.4-10.2) 9.3 mg/dL 11/19/24 Phosphorus, (2.7-4.5) 3.0 mg/dL 10/01/24 PTH Intact, (8.7-77.1) 225.0 pg/mL H 10/01/24 Urine Protein, (Neg-Trace) Negative mg/dL 10/01/24 Urine Creatinine 33.27 mg/dL 10/01/24 Protein/Creatinin Ratio, (24-184) 306 mg/g creat H 10/01/24 Assessment & Plan Assessment & Plan (1) HTN (hypertension): Code(s): I10 - Essential (primary) hypertension Category: Medical Qualifiers: Hypertension type: primary hypertension Qualified Code(s): I10 - Essential (primary) hypertension (2) Secondary hyperparathyroidism (of renal origin): Code(s): N25.81 - Secondary hyperparathyroidism of renal origin Category: Medical (3) CKD stage 3a, GFR 45-59 ml/min: Code(s): N18.31 - Chronic kidney disease, stage 3a Category: Medical Plan Her blood pressure is currently at goal. She is not on any immunosuppression for sarcoid. She can continue current medications. Her urine output is good. Her volume status is optimal. She should be on a low-sodium diet. She needs to be on Jardiance. She will benefit by losing some weight. She has history of renal calculi but has not had a problem with it recently. She should maintain fluid restriction. I did not make any medication changes today. Plan to start medication for secondary hyperparathyroidism at next visit, if needed. Blood work 3 month. Answered all her questions. Follow-up appointment given. Orders: Orders Electrolytes 3 Months I10 - Essential (primary) hypertension, N18.31 - Chronic kidney disease, stage 3a, N25.81 - Secondary hyperparathyroidism of renal origin Calcium 3 Months I10 - Essential (primary) hypertension, N18.31 - Chronic kidney disease, stage 3a, N25.81 - Secondary hyperparathyroidism of renal origin Blood Urea Nitrogen 3 Months I10 - Essential (primary) hypertension, N18.31 - Chronic kidney disease, stage 3a, N25.81 - Secondary hyperparathyroidism of renal origin Creatinine 3 Months I10 - Essential (primary) hypertension, N18.31 - Chronic kidney disease, stage 3a, N25.81 - Secondary hyperparathyroidism of renal origin Coding Level of Care Code Est Pt Level 4 (85276) Diagnoses Primary hypertension I10 Hypertension type: primary hypertension Secondary hyperparathyroidism (of renal origin) N25.81 CKD stage 3a, GFR 45-59 ml/min N18.31
[2024-12-22 10:34] VITALS: BP 130/62; PULSE 69; O2SAT 97; BMI 31.8
--- OUTSIDE RECORDS SUMMARY | 2024-12-22 12:51 | XMS_ITS | Encounter Summary ---
Author Organization [facility], Address [address] [place] [address] Phone Care Team Providers Care Pit Shovel Operator Name Role Phone Renato Nunn MD Primary Care Provider + [phone] Encounter Details Date Type Department Care Team (Late st Contact Info) Description 12/23/2023 Documentation Only [facility], [address] [place] [address] [place] [address] [place] [phone] Social History Tobacco Use Types Packs/Day Years [...] on filedocumented in this encounter Care Teams Pit Shovel Operator Relationship Specialty Start Date End Date Renato Nunn MD [facility] [address] [place], [place] PCP - General 03/07/20 documented as of this encounter
--- OUTSIDE RECORDS SUMMARY | 2024-12-22 12:51 | XMS_ITS | Clinical Summary ---
Author Organization [facility] Address [address] [place] [address] Phone Care Team Providers Care Financial Reporting Director Name Role Phone Renato Nunn MD Primary Care Provider [phone] Allergies Active Allergy Reactions Criticality Noted Date [...] day before breakfast. 90 each 3 11/17/2024 Active Active Problems No known active problems Encounters Date Type Department Care Team Description 12/21/2024 10:11 AM EDT - 12/21/2024 11:59 PM EDT Hospital Encounter Radiology Department [address] [phone] Cyst of pancreas Discharge Disposition: Home or Self Care from Last 3 Months Immunizations Immunization Administration Dates Next Due Influenza, Unspecified 01/22/2022 [...] Health Maintenance Due Date Last Done Comments Colorectal Cancer Screening: Colonoscopy 1960 Diabetes: Annual GFR (Glomerular Filtration Rate) 1960 Diabetes: Annual Foot Exam 02/10/1968 Diabetes: Annual Retina Eye Exam 02/10/1968 Hepatitis A Vaccines (1 of 2 - Risk 2-dose series) 1977 RSV Immunization Adult Patients (1 - Risk 50-74 years 1-dose series) 02/10/2008 Zoster Vaccines (1 of 2) 02/10/2008 Pneumococcal Vaccine: 50+ Years (2 of 2 - PCV) 08/14/2011 08/13/2010 Hepatitis B Vaccines (2 of 3 - Risk 3-dose series) 07/29/2012 07/01/2012 Breast Cancer Screening 03/06/2020 03/06/2018 DTaP,Tdap,and Td Vaccines (2 - Td or Tdap) 08/06/2021 08/07/2011 Cholesterol Screening (Lipid Panel) 12/03/2023 Falls Risk Assessment 12/03/2023 Hepatitis C [...] 12/21/2024 11:43 AM EDT Cyst of pancreas BHARGAVI SCREENING DIGITAL Routine 03/06/2018 10:32 AM EST Encounter for screening mammogram for malignant neoplasm of breast from Last 3 Months or Most Recently Relevant to Health Maintenance Results * MR Abdomen wo and w [...] Signed Date: 12/22/2024 00:08 ET Workstation ID: [id number] Transcribed By: Self Edit Transcribed Date: 12/21/2024 [...] Signed Date: 12/22/2024 00:08 ET Workstation ID: [id number] Transcribed By: Self Edit Transcribed Date: 12/21/2024 23:45 ET Rachael Brizuela NP IMG MRI PROCEDURES Final Result * BHARGAVI SCREENING DIGITAL (03/06/2018 10:32 AM EST) Anatomical Region Laterality Modality Mammography 03/06/2018 8:39 AM EST Narrative 03/06/2018 10:32 AM EST [facility] Diagnostic Imaging Department [address] [place] [id number] Patient: ALPA DAVID /Age/Sex: 1960 - 58 - F Unit#: [id number] Location/Status: SPDIMAM/REG CLI Mnemonic/Ordering Site: [facility] Ordering Physician: AL GARZA MD Bhargavi Screening Digital - 03/06/18 - 09 INDICATION: Screening.The patient has a family history [...] for the next mammogram: CPT II 7025F [id number] Dictating Physician: SIDRA GUEVARA MD Electronically Signed by: SIDRA GUEVARA MD Dic Date/Time: 03/06/18 1029 Sign date/Time: 03/06/18 1032 Procedure Note Sidra Guevara MD - 02/14/2022 [facility] Diagnostic Imaging Department [address] [place] [address] [id number] Patient: ALPA DAVID./Age/Sex: 1960 - 58 - F Unit#: [id number] Location/Status: SPDIMAM/REG CLI Mnemonic/Ordering Site: [facility] Ordering Physician: AL GARZA MD Bhargavi [...] for the next mammogram: CPT II 7025F [id number] Dictating Physician: SIDRA GUEVARA MD Electronically Signed by: SIDRA GUEVARA MD Dic Date/Time: 03/06/18 1029 Sign date/Time: 03/06/18 1032 Al Garza MD IMG BI PROCEDURES Final R esult from Last 3 Months or Most Recently Relevant to Health Maintenance Insurance MED[place]ID - [place] Member Subscriber Plan / Payer (Ef fective 2024-Present) Name:ALPA SCHMIDT Relation to Subscriber:Self Name:Alpa David Payer ID:[id number] Group ID:Not on file Type:Not on file Address: [facility] ATTN:CLAIMS [address] [place] [address] MEDICARE [facility] [employer] Member Subscriber Plan / Payer (Ef fective 2024-Present) Name:Alpa David Relation to Subscriber:Self Name:Alpa David Payer ID:[id number] Group ID:Not on file Type:Not on file Address: [address] [place] [address] Care Teams Financial Reporting Director Relationship Specialty Start Date End Date Renato Nunn MD [address] [place] [phone] PCP - General 07/30/23
--- OUTSIDE RECORDS SUMMARY | 2024-12-22 12:51 | XMS_ITS | Clinical Summary ---
Author Organization [facility], Address [address] [place] [address] [place] [address] Phone Care Team Providers Care Mobile Health Vehicle Operator Name Role Phone Renato Nunn MD Primary Care Provider + [phone] Allergies Active Allergy Reactions Criticality Noted Date [...] back pain 03/28/20212021 Cirrhosis of liver 03/28/2021 Coronary arteriosclerosis 03/28/2021 Hyperlipidemia 03/28/2021 06/27/2021 Mediastinal lymphadenopathy 03/28/2021 06/27/2021 Patient care statuses 03/28/20212021 Peripheral neuropathy 03/28/20212021 Steatotic liver disease 03/28/2021 05/0 04/2021 Tubular adenomatous polyp of colon 03/28/2021 06/27/2021 Overview (03/28/2021): 06/2017, also finding of interanl [...] 9.9 8.7 - 10.7 mg/dL eGFR Non-Afr Montenegrin 50 eGFR 58 Hemoglobin A1C 11.4(A) 4.0 - 6.0 08/09/2020 us Historical Provider LAB BLOOD ORDERABLES Paula l Result from Last 3 Months or Most Recently Relevant to Health Maintenance Insurance Medicare Medicaid [place] [address] [place] [id number] Medicare Medicaid [place] [address] [place] [phone] Care Teams Mobile Health Vehicle Operator Relationship Specialty Start Date End Date Renato Nunn MD [facility] [address] [place] [address] PCP - General 03/07/20
--- OUTSIDE RECORDS SUMMARY | 2024-12-22 12:51 | XMS_ITS | Encounter Summary ---
Author Organization [facility], Address [address] [place] [address] Phone Care Team Providers Care Strap Buckler Machine Name Role Phone Renato Nunn MD Primary Care Provider + [phone] Encounter Details Date Type Department Care Team (Late st Contact Info) Description 12/23/2023 Documentation Only [facility], [address] [place] [address] [place] [address] [place] [phone] Social History Tobacco Use Types Packs/Day Years [...] on filedocumented in this encounter Care Teams Strap Buckler Machine Relationship Specialty Start Date End Date Renato Nunn MD [facility] [address] [place], [place] PCP - General 03/07/20 documented as of this encounter
== END 2024-12-22 10:46 | disposition home or self-care (01) ==
LOC: HO.HKAS 10:26
PROVIDERS: PCP Family Medicine; Visit Provider Internal Medicine Nephrology
DX: I10 Essential (primary) hypertension (principal); N25.81 Secondary hyperparathyroidism of renal origin; N18.31 Chronic kidney disease, stage 3a
CPT/HCPCS: 99214

== ENCOUNTER → 2024-12-22 10:26 | Outpatient (BNVA) | payer OTHER, SELFPAY | PROVIDERS: PCP Family Medicine; Visit Provider Internal Medicine Nephrology | DX: I12.9 Hypertensive chronic kidney disease with stage 1 through stage 4 chronic kidney disease, or unspecified chronic kidney disease (principal); E11.22 Type 2 diabetes mellitus with diabetic chronic kidney disease; N18.31 Chronic kidney disease, stage 3a; N25.81 Secondary hyperparathyroidism of renal origin; D86.0 Sarcoidosis of lung; Z79.631 Long term (current) use of antimetabolite agent; Z79.899 Other long term (current) drug therapy; Z79.4 Long term (current) use of insulin | CPT/HCPCS: 99212 ==